=== PATIENT | male | born 1970 | race Caucasian/White ===

== ENCOUNTER 2016-02-15 13:01 | Outpatient (RCR) | payer BC | END 2016-05-15 | disposition still patient (30) | LOC: MKS.ESL.PT | DX: I89.0 Lymphedema, not elsewhere classified (principal); Z85.47 Personal history of malignant neoplasm of testis; Z92.3 Personal history of irradiation ==

== ENCOUNTER → 2016-03-20 | Outpatient (REF) | LOC: ZLAB.WCH 10:43 | DX: Z01.89 Encounter for other specified special examinations (principal) ==

== ENCOUNTER → 2016-06-16 | Outpatient (REF) | LOC: ZLAB.WCH 20:08 | DX: Z01.89 Encounter for other specified special examinations (principal) ==

== ENCOUNTER 2016-12-07 20:15 | Inpatient (IN) | payer OTHER, MEDICAID ==
[~2016-12-07] VITALS: Ht 175.3 cm; Wt 177.0 kg
[2016-12-07] VITALS (96 sets, daily range): BP systolic 129; BP diastolic 78; PULSE 87; TEMP 97.3; O2SAT 76–100
[2016-12-07] MEDS ORDERED: PRAVACHOL 40MG40 MG PO (22:21)
[2016-12-07] MEDS ORDERED: ZYRTEC 10MG10 MG PO (22:23)
[2016-12-07] MEDS ORDERED: PRILOSEC 20MG20 MG PO (22:25)
[2016-12-07] MEDS ORDERED: LASIX 40MG TABL40 MG PO (22:28)
[2016-12-07] MEDS ORDERED: MIRAPEX 1MG PO (22:31)
[2016-12-07] MEDS ORDERED: COREG 25MG25 MG/TAB PO (22:32)
[2016-12-07] MEDS ORDERED: GLUCOPHAGE1000 MG PO (22:34)
[2016-12-07] MEDS ORDERED: NOVOLIN 70/30 710 ML SQ (22:36)
[2016-12-08] VITALS (1301 sets, daily range): BP systolic 112–141; BP diastolic 63–88; PULSE 72–90; TEMP 97–99.3; O2SAT 43–100
[2016-12-08 01:48] LABS: BASO # 0.1 (0.0-0.2); BASO % 0.7 % (0.0-2.0); EOS # 0.2 (0.0-0.7); EOS % 1.1 % (0-4.0); GRAN # 10.2 (1.4-6.5); GRAN % 67.9 % (42.2-75.2); HEMATOCRIT 48.4 % (42.0-52.0); HEMOGLOBIN 14.1 g/dl (13.5-18.0); LYMPH # 3.1 (1.2-3.4); LYMPH % 20.4 % (20.0-51.0); MEAN CELL VOLUME 84 fl (80.0-100.0); MEAN CORPUSCULAR HEMOGLOBIN 24 pg (27.0-31.0); MEAN CORPUSCULAR HGB CONC 29 g/dl (33.0-37.0); MEAN PLATELET VOLUME 11.5 fl (7.4-10.4); MONO # 1.3 (0.1-0.6); PLATELET COUNT 256 K/mm3 (130-400); RED BLOOD COUNT 5.77 M/mm3 (4.20-5.60)
[2016-12-08 02:03] LABS: ADJUSTED CALCIUM 8.6 mg/dL (8.4-10.2); ALBUMIN 3.7 gm/dL (3.5-5.0); BILIRUBIN,TOTAL 0.6 mg/dL (0.0-1.0); C-REACTIVE PROTEIN 1.6 mg/dL (0.0-0.9); CALCIUM 8.4 mg/dL (8.4-10.2); CREATININE, serum 0.88 mg/dL (0.66-1.25); MAGNESIUM 1.8 mg/dL (1.6-2.3); POTASSIUM 4.7 mmol/L (3.4-5.0); TOTAL PROTEIN 7.5 gm/dL (6.4-8.2)
[2016-12-08 02:12] LABS: TROPONIN-I 0.014 ng/mL (0.000-0.034)
[2016-12-08 05:20] LABS: ARTERIAL BLD GAS O2 SATURATION 90.5 % (92-100); ARTERIAL BLD GAS TCO2 CT 38.8; ARTERIAL BLOOD GAS HCO3 36.4 meq/L (22-26); ARTERIAL BLOOD GAS PO2 64.1 mmHg (80-100); ARTERIAL BLOOD GAS PO2T 64.1 (80-100)
[2016-12-08 05:22] LABS: ALLEN TEST YES; ALLENS TEST RESULT PASS; ATS? YES
[2016-12-08 06:47] LABS: BASO # 0.1 (0.0-0.2); BASO % 0.6 % (0.0-2.0); EOS # 0.1 (0.0-0.7); GRAN # 10.1 (1.4-6.5); GRAN % 72.4 % (42.2-75.2); HEMATOCRIT 46.9 % (42.0-52.0); HEMOGLOBIN 13.2 g/dl (13.5-18.0); LYMPH # 2.3 (1.2-3.4); LYMPH % 16.8 % (20.0-51.0); MEAN CELL VOLUME 86 fl (80.0-100.0); MEAN CORPUSCULAR HEMOGLOBIN 24 pg (27.0-31.0); MEAN CORPUSCULAR HGB CONC 28 g/dl (33.0-37.0); MEAN PLATELET VOLUME 11.7 fl (7.4-10.4); MONO # 1.2 (0.1-0.6); MONO % 8.6 % (1.7-9.3); PLATELET COUNT 234 K/mm3 (130-400); RED BLOOD COUNT 5.47 M/mm3 (4.20-5.60); WHITE BLOOD COUNT 13.9 K/mm3 (4.8-10.8)
[2016-12-08 07:03] LABS: CALCIUM 8.2 mg/dL (8.4-10.2); CREATININE, serum 0.98 mg/dL (0.66-1.25); POTASSIUM 4.1 mmol/L (3.4-5.0)
[2016-12-08 08:33] LABS: ARTERIAL BLD GAS O2 SATURATION 93.7 % (92-100); ARTERIAL BLOOD GAS BASE EXCESS 7.9 (-2-2); ARTERIAL BLOOD GAS HCO3 38.3 meq/L (22-26); ARTERIAL BLOOD GAS PHT 7.27 C (7.35-7.45); ARTERIAL BLOOD GAS PO2 75.9 mmHg (80-100); ARTERIAL BLOOD GAS PO2T 75.9 (80-100); ARTERIAL BLOOD GAS pH 7.27 (7.35-7.45)
[2016-12-08 08:34] LABS: ATS? YES
[2016-12-08 11:14] LABS: ARTERIAL BLD GAS O2 SATURATION 96.1 % (92-100); ARTERIAL BLD GAS TCO2 CT 40.3; ARTERIAL BLOOD GAS BASE EXCESS 10.4 (-2-2); ARTERIAL BLOOD GAS HCO3 38.2 meq/L (22-26); ARTERIAL BLOOD GAS PO2 81.5 mmHg (80-100); ARTERIAL BLOOD GAS pH 7.38 (7.35-7.45); OXYHEMOGLOBIN 94.2 %
[2016-12-08 11:16] LABS: ABG VENTILATOR TIDAL VOLUME 450 mL; ATS? NO
[2016-12-08 16:00] LABS: MUCOUS Present /lpf; PH 5 (5-8); SQUAMOUS EPITHELIAL None Seen /hpf; URINE APPEARANCE Hazy; URINE BACTERIA None Seen /hpf; URINE BILIRUBIN Negative (NEGATIVE); URINE BLOOD 3+ (NEGATIVE); URINE COLOR Yellow; URINE GLUCOSE Negative (NEGATIVE); URINE KETONE Negative (NEGATIVE); URINE LEUKOCYTE ESTERASE Negative (NEGATIVE); URINE PROTEIN(semi-quant) 1+ (NEGATIVE); URINE RBC >50 /hpf; URINE UROBILINOGEN Negative (NEGATIVE)
[2016-12-08 16:12] LABS: COLLECTION METHOD CATHETER
[2016-12-08 17:36] LABS: ARTERIAL BLD GAS O2 SATURATION 96.8 % (92-100); ARTERIAL BLD GAS TCO2 CT 37.5; ARTERIAL BLOOD GAS BASE EXCESS 10.4 (-2-2); ARTERIAL BLOOD GAS HCO3 35.9 meq/L (22-26); ARTERIAL BLOOD GAS PO2 86.8 mmHg (80-100); ARTERIAL BLOOD GAS pH 7.46 (7.35-7.45); OXYHEMOGLOBIN 95.3 %
[2016-12-08 17:37] LABS: ABG VENTILATOR TIDAL VOLUME 450 mL
[2016-12-08 18:07] LABS: ADD PATHOLOGY DIFF REVIEW NO
[2016-12-08 18:10] LABS: HEMATOCRIT 41.9 % (42.0-52.0); HEMOGLOBIN 12.3 g/dl (13.5-18.0); MEAN CELL VOLUME 84 fl (80.0-100.0); MEAN CORPUSCULAR HGB CONC 29 g/dl (33.0-37.0); MEAN PLATELET VOLUME 11.2 fl (7.4-10.4); PLATELET COUNT 193 K/mm3 (130-400); WHITE BLOOD COUNT 11.3 K/mm3 (4.8-10.8)
[2016-12-08 18:11] LABS: MEAN CORPUSCULAR HEMOGLOBIN 25 pg (27.0-31.0)
[2016-12-08 18:28] LABS: CALCIUM 8.1 mg/dL (8.4-10.2); CREATININE, serum 0.84 mg/dL (0.66-1.25); MAGNESIUM 1.6 mg/dL (1.6-2.3); PHOSPHOROUS 3.8 mg/dL (2.5-4.5); POTASSIUM 3.6 mmol/L (3.4-5.0)
[2016-12-08 22:56] LABS: BAND 6 % (0-10); BASOPHIL 1 % (0-2); EOSINOPHIL 1 % (0-4); LYMPHOCYTE 19 % (20.0-51.0); METAMYELOCYTE 1 % (0-0); NEUTROPHILS 66 % (42.0-75.2); TOTAL CELLS COUNTED 100
[2016-12-08 22:57] LABS: PLATELET ESTIMATE NORMAL (NORMAL)
[2016-12-08 23:00] LABS: ANISOCYTOSIS 2+; HYPOCHROMIA 1+; MICROCYTOSIS 1+; OVALOCYTES 1+; POLYCHROMASIA 1+; TOXIC GRANULATION PRESENT
[2016-12-09] VITALS (1413 sets, daily range): BP systolic 115–148; BP diastolic 64–87; PULSE 76–93; TEMP 97.6–98.4; O2SAT 77–100
[2016-12-09 04:44] LABS: ARTERIAL BLD GAS O2 SATURATION 92.5 % (92-100); ARTERIAL BLD GAS TCO2 CT 42.1; ARTERIAL BLOOD GAS BASE EXCESS 12.1 (-2-2); ARTERIAL BLOOD GAS PHT 7.39 C (7.35-7.45); ARTERIAL BLOOD GAS PO2 66.7 mmHg (80-100); ARTERIAL BLOOD GAS PO2T 66.7 (80-100); ARTERIAL BLOOD GAS pH 7.39 (7.35-7.45); OXYHEMOGLOBIN 91.1 %
[2016-12-09 04:46] LABS: ALLEN TEST NO; ATS? NO
[2016-12-09 05:55] LABS: BASO # 0.1 (0.0-0.2); BASO % 0.5 % (0.0-2.0); EOS # 0.1 (0.0-0.7); EOS % 0.7 % (0-4.0); GRAN # 10.3 (1.4-6.5); GRAN % 76.3 % (42.2-75.2); HEMOGLOBIN 13.1 g/dl (13.5-18.0); LYMPH # 1.9 (1.2-3.4); LYMPH % 14.1 % (20.0-51.0); MEAN CELL VOLUME 85 fl (80.0-100.0); MEAN CORPUSCULAR HEMOGLOBIN 25 pg (27.0-31.0); MEAN CORPUSCULAR HGB CONC 30 g/dl (33.0-37.0); MEAN PLATELET VOLUME 12.3 fl (7.4-10.4); MONO # 1.1 (0.1-0.6); MONO % 7.8 % (1.7-9.3); PLATELET COUNT 201 K/mm3 (130-400); RED BLOOD COUNT 5.21 M/mm3 (4.20-5.60); WHITE BLOOD COUNT 13.5 K/mm3 (4.8-10.8)
[2016-12-09 06:15] LABS: CALCIUM 7.6 mg/dL (8.4-10.2); CREATININE, serum 0.83 mg/dL (0.66-1.25); MAGNESIUM 1.6 mg/dL (1.6-2.3); PHOSPHOROUS 4.7 mg/dL (2.5-4.5); POTASSIUM 3.9 mmol/L (3.4-5.0)
[2016-12-09 21:02] LABS: MAGNESIUM 1.9 mg/dL (1.6-2.3); PHOSPHOROUS 5.5 mg/dL (2.5-4.5); POTASSIUM 3.6 mmol/L (3.4-5.0)
[2016-12-10] VITALS (1440 sets, daily range): BP systolic 112–144; BP diastolic 59–80; PULSE 80–87; TEMP 97.1–100.9; O2SAT 63–98
[2016-12-10 04:58] LABS: ARTERIAL BLD GAS O2 SATURATION 94.2 % (92-100); ARTERIAL BLD GAS TCO2 CT 41.9; ARTERIAL BLOOD GAS BASE EXCESS 11.4 (-2-2); ARTERIAL BLOOD GAS HCO3 39.7 meq/L (22-26); ARTERIAL BLOOD GAS PHT 7.36 C (7.35-7.45); ARTERIAL BLOOD GAS PO2 75.9 mmHg (80-100); ARTERIAL BLOOD GAS PO2T 75.4 (80-100); ARTERIAL BLOOD GAS pH 7.36 (7.35-7.45); OXYHEMOGLOBIN 92.4 %
[2016-12-10 05:00] LABS: ABG VENTILATOR TIDAL VOLUME 450 mL; ALLEN TEST NO; ATS? NO
[2016-12-10 05:45] LABS: BASO % 0.4 % (0.0-2.0); EOS # 0.1 (0.0-0.7); EOS % 1.2 % (0-4.0); GRAN # 7.9 (1.4-6.5); GRAN % 74.1 % (42.2-75.2); HEMATOCRIT 42.8 % (42.0-52.0); HEMOGLOBIN 12.4 g/dl (13.5-18.0); LYMPH # 1.6 (1.2-3.4); LYMPH % 15.1 % (20.0-51.0); MEAN CELL VOLUME 84 fl (80.0-100.0); MEAN CORPUSCULAR HEMOGLOBIN 25 pg (27.0-31.0); MEAN CORPUSCULAR HGB CONC 29 g/dl (33.0-37.0); MEAN PLATELET VOLUME 10.7 fl (7.4-10.4); MONO # 0.9 (0.1-0.6); MONO % 8.7 % (1.7-9.3); PLATELET COUNT 178 K/mm3 (130-400); RED BLOOD COUNT 5.07 M/mm3 (4.20-5.60); WHITE BLOOD COUNT 10.6 K/mm3 (4.8-10.8)
[2016-12-10 06:07] LABS: CALCIUM 7.7 mg/dL (8.4-10.2); CREATININE, serum 0.91 mg/dL (0.66-1.25); PHOSPHOROUS 4.7 mg/dL (2.5-4.5); POTASSIUM 3.7 mmol/L (3.4-5.0)
[2016-12-11] VITALS (1426 sets, daily range): BP systolic 117–142; BP diastolic 61–77; PULSE 67–87; TEMP 96.6–101; O2SAT 78–100
[2016-12-11 05:31] LABS: ARTERIAL BLD GAS O2 SATURATION 93.6 % (92-100); ARTERIAL BLD GAS TCO2 CT 49.1; ARTERIAL BLOOD GAS BASE EXCESS 17.2 (-2-2); ARTERIAL BLOOD GAS HCO3 46.6 meq/L (22-26); ARTERIAL BLOOD GAS PHT 7.35 C (7.35-7.45); ARTERIAL BLOOD GAS PO2 71.5 mmHg (80-100); ARTERIAL BLOOD GAS PO2T 80.7 (80-100); ARTERIAL BLOOD GAS pH 7.37 (7.35-7.45)
[2016-12-11 05:32] LABS: ALLEN TEST YES; ALLENS TEST RESULT PASS; ATS? YES
[2016-12-11 05:33] LABS: ABG VENTILATOR TIDAL VOLUME 450 mL
[2016-12-11 05:43] LABS: BASO % 0.3 % (0.0-2.0); EOS # 0.1 (0.0-0.7); EOS % 1.2 % (0-4.0); GRAN # 7.7 (1.4-6.5); GRAN % 78.1 % (42.2-75.2); HEMATOCRIT 41.9 % (42.0-52.0); LYMPH # 1.2 (1.2-3.4); LYMPH % 11.7 % (20.0-51.0); MEAN CELL VOLUME 86 fl (80.0-100.0); MEAN CORPUSCULAR HEMOGLOBIN 25 pg (27.0-31.0); MEAN CORPUSCULAR HGB CONC 29 g/dl (33.0-37.0); MEAN PLATELET VOLUME 11.4 fl (7.4-10.4); MONO # 0.8 (0.1-0.6); MONO % 8.1 % (1.7-9.3); PLATELET COUNT 158 K/mm3 (130-400); WHITE BLOOD COUNT 9.9 K/mm3 (4.8-10.8)
[2016-12-11 05:55] LABS: CALCIUM 7.3 mg/dL (8.4-10.2); CREATININE, serum 0.94 mg/dL (0.66-1.25); MAGNESIUM 2.1 mg/dL (1.6-2.3); POTASSIUM 3.7 mmol/L (3.4-5.0)
[2016-12-11 05:55] LABS: COLLECTION METHOD CATHETER
[2016-12-11 06:04] LABS: MUCOUS Present /lpf; PH 5 (5-8); SQUAMOUS EPITHELIAL 0-2 /hpf; URINE APPEARANCE Hazy; URINE BACTERIA Rare /hpf; URINE BILIRUBIN Negative (NEGATIVE); URINE BLOOD Negative (NEGATIVE); URINE COLOR Yellow; URINE GLUCOSE Negative (NEGATIVE); URINE KETONE Trace (NEGATIVE); URINE LEUKOCYTE ESTERASE Negative (NEGATIVE); URINE PROTEIN(semi-quant) 1+ (NEGATIVE); URINE RBC 0-2 /hpf; URINE UROBILINOGEN Negative (NEGATIVE)
[2016-12-11 15:48] LABS: URINE PROTEIN:CREAT RATIO 0.19 (0.00-0.14)
[2016-12-11 18:10] LABS: ARTERIAL BLD GAS O2 SATURATION 95.4 % (92-100); ARTERIAL BLD GAS TCO2 CT 45.4; ARTERIAL BLOOD GAS BASE EXCESS 14.6 (-2-2); ARTERIAL BLOOD GAS HCO3 43.1 meq/L (22-26); ARTERIAL BLOOD GAS PHT 7.37 C (7.35-7.45); ARTERIAL BLOOD GAS PO2 82.3 mmHg (80-100); ARTERIAL BLOOD GAS PO2T 85.6 (80-100); ARTERIAL BLOOD GAS pH 7.38 (7.35-7.45); OXYHEMOGLOBIN 93.7 %
[2016-12-11 18:11] LABS: ABG VENTILATOR TIDAL VOLUME 450 mL; ALLEN TEST YES; ALLENS TEST RESULT PASS; ATS? YES
[2016-12-11 21:25] LABS: CALCIUM 7.3 mg/dL (8.4-10.2); CREATININE, serum 0.66 mg/dL (0.66-1.25); MAGNESIUM 2.3 mg/dL (1.6-2.3); PHOSPHOROUS 2.6 mg/dL (2.5-4.5); POTASSIUM 4.1 mmol/L (3.4-5.0)
[2016-12-12] VITALS (1427 sets, daily range): BP systolic 128–152; BP diastolic 67–84; PULSE 70–80; TEMP 98.4–100.4; O2SAT 86–100
[2016-12-12 05:13] LABS: ARTERIAL BLD GAS O2 SATURATION 94.2 % (92-100); ARTERIAL BLD GAS TCO2 CT 44.5; ARTERIAL BLOOD GAS BASE EXCESS 13.5 (-2-2); ARTERIAL BLOOD GAS HCO3 42.2 meq/L (22-26); ARTERIAL BLOOD GAS PHT 7.36 C (7.35-7.45); ARTERIAL BLOOD GAS PO2 73.9 mmHg (80-100); ARTERIAL BLOOD GAS PO2T 74.9 (80-100); ARTERIAL BLOOD GAS pH 7.37 (7.35-7.45); OXYHEMOGLOBIN 92.6 %
[2016-12-12 05:14] LABS: ABG VENTILATOR TIDAL VOLUME 450 mL; ALLEN TEST YES; ALLENS TEST RESULT PASS; ATS? YES
[2016-12-12 06:34] LABS: CALCIUM 7.9 mg/dL (8.4-10.2); CREATININE, serum 0.74 mg/dL (0.66-1.25)
[2016-12-12 09:42] LABS: CREATININE, serum 0.62 mg/dL (0.66-1.25)
[2016-12-13] VITALS (1420 sets, daily range): BP systolic 126–141; BP diastolic 68–83; PULSE 74–84; TEMP 98.9–99.9; O2SAT 89–99
[2016-12-13 05:09] LABS: ARTERIAL BLD GAS TCO2 CT 45.7; ARTERIAL BLOOD GAS BASE EXCESS 14.4 (-2-2); ARTERIAL BLOOD GAS HCO3 43.3 meq/L (22-26); ARTERIAL BLOOD GAS PO2 83.3 mmHg (80-100); ARTERIAL BLOOD GAS pH 7.36 (7.35-7.45); OXYHEMOGLOBIN 94.8 %
[2016-12-13 05:11] LABS: ALLEN TEST YES; ALLENS TEST RESULT PASS; ATS? YES
[2016-12-13 05:58] LABS: BASO # 0.1 (0.0-0.2); BASO % 0.7 % (0.0-2.0); EOS # 0.4 (0.0-0.7); EOS % 3.7 % (0-4.0); GRAN # 6.9 (1.4-6.5); GRAN % 73.2 % (42.2-75.2); HEMATOCRIT 41.9 % (42.0-52.0); LYMPH # 1.3 (1.2-3.4); LYMPH % 14.2 % (20.0-51.0); MEAN CELL VOLUME 86 fl (80.0-100.0); MEAN CORPUSCULAR HEMOGLOBIN 24 pg (27.0-31.0); MEAN CORPUSCULAR HGB CONC 28 g/dl (33.0-37.0); MEAN PLATELET VOLUME 11.4 fl (7.4-10.4); MONO # 0.8 (0.1-0.6); MONO % 7.9 % (1.7-9.3); PLATELET COUNT 181 K/mm3 (130-400); WHITE BLOOD COUNT 9.5 K/mm3 (4.8-10.8)
[2016-12-13 05:59] LABS: HEMOGLOBIN 11.8 g/dl (13.5-18.0)
[2016-12-13 06:24] LABS: CALCIUM 8.2 mg/dL (8.4-10.2); CREATININE, serum 0.84 mg/dL (0.66-1.25); MAGNESIUM 2.6 mg/dL (1.6-2.3); PHOSPHOROUS 3.1 mg/dL (2.5-4.5); POTASSIUM 4.1 mmol/L (3.4-5.0)
[2016-12-13 06:31] LABS: VANCOMYCIN TROUGH 22.8 ug/mL (7.00-20.00)
[2016-12-14] VITALS (1389 sets, daily range): BP systolic 119–156; BP diastolic 60–81; PULSE 71–91; TEMP 99.2–100.4; O2SAT 92–98
[2016-12-14 05:04] LABS: ALLEN TEST YES; ALLENS TEST RESULT PASS; ARTERIAL BLD GAS O2 SATURATION 95.8 % (92-100); ARTERIAL BLD GAS TCO2 CT 41.2; ARTERIAL BLOOD GAS BASE EXCESS 10.2 (-2-2); ARTERIAL BLOOD GAS HCO3 38.9 meq/L (22-26); ARTERIAL BLOOD GAS PO2 86.6 mmHg (80-100); ARTERIAL BLOOD GAS pH 7.34 (7.35-7.45); ATS? YES; OXYHEMOGLOBIN 94.2 %
[2016-12-14 06:24] LABS: BASO # 0.1 (0.0-0.2); BASO % 0.6 % (0.0-2.0); EOS # 0.3 (0.0-0.7); EOS % 2.6 % (0-4.0); GRAN # 7.4 (1.4-6.5); GRAN % 74.7 % (42.2-75.2); HEMATOCRIT 41.3 % (42.0-52.0); LYMPH # 1.2 (1.2-3.4); LYMPH % 12.3 % (20.0-51.0); MEAN CELL VOLUME 86 fl (80.0-100.0); MEAN CORPUSCULAR HEMOGLOBIN 24 pg (27.0-31.0); MEAN CORPUSCULAR HGB CONC 28 g/dl (33.0-37.0); MEAN PLATELET VOLUME 11.1 fl (7.4-10.4); MONO # 0.9 (0.1-0.6); MONO % 9.4 % (1.7-9.3); PLATELET COUNT 181 K/mm3 (130-400); RED BLOOD COUNT 4.82 M/mm3 (4.20-5.60); WHITE BLOOD COUNT 9.9 K/mm3 (4.8-10.8)
[2016-12-14 06:33] LABS: HEMOGLOBIN 11.7 g/dl (13.5-18.0)
[2016-12-14 06:44] LABS: CALCIUM 8.3 mg/dL (8.4-10.2); CREATININE, serum 0.87 mg/dL (0.66-1.25); MAGNESIUM 2.6 mg/dL (1.6-2.3); PHOSPHOROUS 3.6 mg/dL (2.5-4.5); POTASSIUM 3.7 mmol/L (3.4-5.0)
[2016-12-14 17:54] LABS: ARTERIAL BLD GAS O2 SATURATION 96.6 % (92-100); ARTERIAL BLD GAS TCO2 CT 43.6; ARTERIAL BLOOD GAS BASE EXCESS 12.8 (-2-2); ARTERIAL BLOOD GAS HCO3 41.3 meq/L (22-26); ARTERIAL BLOOD GAS PO2 85.2 mmHg (80-100); ARTERIAL BLOOD GAS pH 7.36 (7.35-7.45); OXYHEMOGLOBIN 95.4 %
[2016-12-14 18:01] LABS: ALLEN TEST YES; ALLENS TEST RESULT PASS; ATS? YES
[2016-12-15] VITALS (1412 sets, daily range): BP systolic 133–169; BP diastolic 77–90; PULSE 80–90; TEMP 98.6–100.8; O2SAT 86–100
[2016-12-15 05:12] LABS: ALLEN TEST YES; ALLENS TEST RESULT PASS; ARTERIAL BLD GAS O2 SATURATION 97.1 % (92-100); ARTERIAL BLD GAS TCO2 CT 38.4; ARTERIAL BLOOD GAS BASE EXCESS 10.5 (-2-2); ARTERIAL BLOOD GAS HCO3 36.7 meq/L (22-26); ARTERIAL BLOOD GAS PO2 90.4 mmHg (80-100); ARTERIAL BLOOD GAS pH 7.43 (7.35-7.45); ATS? YES
[2016-12-15 05:57] LABS: BASO # 0.1 (0.0-0.2); BASO % 0.7 % (0.0-2.0); EOS # 0.4 (0.0-0.7); EOS % 3.3 % (0-4.0); GRAN # 8.1 (1.4-6.5); GRAN % 74.2 % (42.2-75.2); HEMATOCRIT 39.4 % (42.0-52.0); LYMPH # 1.4 (1.2-3.4); LYMPH % 12.4 % (20.0-51.0); MEAN CELL VOLUME 85 fl (80.0-100.0); MEAN CORPUSCULAR HEMOGLOBIN 25 pg (27.0-31.0); MEAN CORPUSCULAR HGB CONC 30 g/dl (33.0-37.0); MEAN PLATELET VOLUME 11.9 fl (7.4-10.4); MONO % 8.9 % (1.7-9.3); PLATELET COUNT 206 K/mm3 (130-400); RED BLOOD COUNT 4.63 M/mm3 (4.20-5.60)
[2016-12-15 06:00] LABS: HEMOGLOBIN 11.7 g/dl (13.5-18.0)
[2016-12-15 06:14] LABS: CALCIUM 8.2 mg/dL (8.4-10.2); CREATININE, serum 0.71 mg/dL (0.66-1.25); PHOSPHOROUS 3.3 mg/dL (2.5-4.5); POTASSIUM 3.7 mmol/L (3.4-5.0)
[2016-12-15 12:38] LABS: ADJUSTED CALCIUM 9.3 mg/dL (8.4-10.2); BILIRUBIN,TOTAL 0.5 mg/dL (0.0-1.0); CALCIUM 8.5 mg/dL (8.4-10.2); CREATININE, serum 0.8 mg/dL (0.66-1.25); MAGNESIUM 2.3 mg/dL (1.6-2.3); PHOSPHOROUS 3.3 mg/dL (2.5-4.5); POTASSIUM 3.5 mmol/L (3.4-5.0)
[2016-12-15 12:47] LABS: PRE ALBUMIN 11.4 mg/dL (17.6-36.0)
[2016-12-16] VITALS (1131 sets, daily range): BP systolic 132–1137; BP diastolic 56–101; PULSE 76–94; TEMP 97.2–100.9; O2SAT 87–100
[2016-12-16 10:14] LABS: BASO # 0.1 (0.0-0.2); BASO % 0.7 % (0.0-2.0); EOS # 0.2 (0.0-0.7); EOS % 2.3 % (0-4.0); GRAN # 7.4 (1.4-6.5); GRAN % 72.1 % (42.2-75.2); HEMATOCRIT 38.8 % (42.0-52.0); HEMOGLOBIN 10.9 g/dl (13.5-18.0); LYMPH # 1.5 (1.2-3.4); LYMPH % 14.4 % (20.0-51.0); MEAN CELL VOLUME 84 fl (80.0-100.0); MEAN CORPUSCULAR HEMOGLOBIN 24 pg (27.0-31.0); MEAN CORPUSCULAR HGB CONC 28 g/dl (33.0-37.0); PLATELET COUNT 217 K/mm3 (130-400); PROTHROMBIN TIME 22.4 SECONDS (9.7-12.8); RED BLOOD COUNT 4.61 M/mm3 (4.20-5.60); WHITE BLOOD COUNT 10.2 K/mm3 (4.8-10.8)
[2016-12-16 10:20] LABS: CALCIUM 8.8 mg/dL (8.4-10.2); CREATININE, serum 0.72 mg/dL (0.66-1.25); MAGNESIUM 2.4 mg/dL (1.6-2.3); PHOSPHOROUS 3.1 mg/dL (2.5-4.5); POTASSIUM 3.3 mmol/L (3.4-5.0)
[2016-12-17] VITALS (1231 sets, daily range): BP systolic 122–157; BP diastolic 63–83; PULSE 77–85; TEMP 99–100.8; O2SAT 86–99
[2016-12-17 05:46] LABS: ARTERIAL BLD GAS O2 SATURATION 97.2 % (92-100); ARTERIAL BLD GAS TCO2 CT 41.5; ARTERIAL BLOOD GAS BASE EXCESS 15.7 (-2-2); ARTERIAL BLOOD GAS PHT 7.53 C (7.35-7.45); ARTERIAL BLOOD GAS PO2 102.4 mmHg (80-100); ARTERIAL BLOOD GAS PO2T 102.4 (80-100); ARTERIAL BLOOD GAS pH 7.53 (7.35-7.45); OXYHEMOGLOBIN 95.6 %
[2016-12-17 05:47] LABS: ABG VENTILATOR TIDAL VOLUME 450 mL; ALLEN TEST YES; ALLENS TEST RESULT PASS; ATS? YES
[2016-12-17 05:50] LABS: BASO # 0.1 (0.0-0.2); BASO % 0.8 % (0.0-2.0); EOS # 0.2 (0.0-0.7); EOS % 2.7 % (0-4.0); GRAN # 6.1 (1.4-6.5); GRAN % 69.2 % (42.2-75.2); HEMATOCRIT 37.2 % (42.0-52.0); LYMPH # 1.5 (1.2-3.4); LYMPH % 16.7 % (20.0-51.0); MEAN CELL VOLUME 85 fl (80.0-100.0); MEAN CORPUSCULAR HEMOGLOBIN 24 pg (27.0-31.0); MEAN CORPUSCULAR HGB CONC 29 g/dl (33.0-37.0); MEAN PLATELET VOLUME 10.6 fl (7.4-10.4); MONO # 0.9 (0.1-0.6); PLATELET COUNT 220 K/mm3 (130-400); WHITE BLOOD COUNT 8.8 K/mm3 (4.8-10.8)
[2016-12-17 06:00] LABS: HEMOGLOBIN 10.6 g/dl (13.5-18.0)
[2016-12-17 06:16] LABS: CALCIUM 8.6 mg/dL (8.4-10.2); CREATININE, serum 0.77 mg/dL (0.66-1.25); MAGNESIUM 2.3 mg/dL (1.6-2.3); PHOSPHOROUS 3.2 mg/dL (2.5-4.5); POTASSIUM 3.6 mmol/L (3.4-5.0)
[2016-12-17 10:20] LABS: INR 1.3 (0.8-3.0); PROTHROMBIN TIME 14.6 SECONDS (9.7-12.8)
[2016-12-17 17:30] LABS: CALCIUM 8.7 mg/dL (8.4-10.2); CREATININE, serum 0.8 mg/dL (0.66-1.25); POTASSIUM 3.3 mmol/L (3.4-5.0)
[2016-12-18] VITALS (1147 sets, daily range): BP systolic 122–155; BP diastolic 69–96; PULSE 77–90; TEMP 97–100; O2SAT 86–100
[2016-12-18 05:58] LABS: CALCIUM 8.9 mg/dL (8.4-10.2); CREATININE, serum 0.75 mg/dL (0.66-1.25); MAGNESIUM 2.4 mg/dL (1.6-2.3); PHOSPHOROUS 3.9 mg/dL (2.5-4.5); POTASSIUM 3.7 mmol/L (3.4-5.0)
[2016-12-18 07:06] LABS: BASO # 0.1 (0.0-0.2); BASO % 0.8 % (0.0-2.0); EOS # 0.5 (0.0-0.7); EOS % 5.5 % (0-4.0); GRAN # 5.3 (1.4-6.5); GRAN % 61.9 % (42.2-75.2); HEMATOCRIT 38.6 % (42.0-52.0); LYMPH # 1.8 (1.2-3.4); MEAN CELL VOLUME 86 fl (80.0-100.0); MEAN CORPUSCULAR HEMOGLOBIN 24 pg (27.0-31.0); MEAN CORPUSCULAR HGB CONC 28 g/dl (33.0-37.0); MEAN PLATELET VOLUME 11.9 fl (7.4-10.4); MONO # 0.9 (0.1-0.6); MONO % 10.2 % (1.7-9.3); PLATELET COUNT 191 K/mm3 (130-400); RED BLOOD COUNT 4.51 M/mm3 (4.20-5.60); WHITE BLOOD COUNT 8.5 K/mm3 (4.8-10.8)
[2016-12-18 07:12] LABS: HEMOGLOBIN 10.7 g/dl (13.5-18.0)
[2016-12-19] VITALS (1319 sets, daily range): BP systolic 114–144; BP diastolic 63–93; PULSE 75–96; TEMP 97.8–103.3; O2SAT 88–100
[2016-12-19 06:34] LABS: BASO # 0.1 (0.0-0.2); BASO % 1.1 % (0.0-2.0); EOS # 0.4 (0.0-0.7); EOS % 4.8 % (0-4.0); GRAN % 61.5 % (42.2-75.2); HEMATOCRIT 38.3 % (42.0-52.0); LYMPH % 23.9 % (20.0-51.0); MEAN CELL VOLUME 85 fl (80.0-100.0); MEAN CORPUSCULAR HEMOGLOBIN 24 pg (27.0-31.0); MEAN CORPUSCULAR HGB CONC 28 g/dl (33.0-37.0); MEAN PLATELET VOLUME 10.9 fl (7.4-10.4); MONO # 0.7 (0.1-0.6); MONO % 8.2 % (1.7-9.3); PLATELET COUNT 238 K/mm3 (130-400); RED BLOOD COUNT 4.49 M/mm3 (4.20-5.60); WHITE BLOOD COUNT 8.2 K/mm3 (4.8-10.8)
[2016-12-19 06:35] LABS: HEMOGLOBIN 10.6 g/dl (13.5-18.0)
[2016-12-19 06:49] LABS: CALCIUM 9.3 mg/dL (8.4-10.2); CREATININE, serum 0.89 mg/dL (0.66-1.25); MAGNESIUM 2.5 mg/dL (1.6-2.3); POTASSIUM 3.9 mmol/L (3.4-5.0)
[2016-12-19 11:14] LABS: ARTERIAL BLD GAS O2 SATURATION 93.9 % (92-100); ARTERIAL BLD GAS TCO2 CT 39.6; ARTERIAL BLOOD GAS BASE EXCESS 10.1 (-2-2); ARTERIAL BLOOD GAS HCO3 37.6 meq/L (22-26); ARTERIAL BLOOD GAS PO2 77.5 mmHg (80-100); ARTERIAL BLOOD GAS pH 7.37 (7.35-7.45); OXYHEMOGLOBIN 92.9 %
[2016-12-19 11:18] LABS: ATS? YES
[2016-12-19 16:47] LABS: INFLUENZA A NEGATIVE; INFLUENZA B NEGATIVE
[2016-12-20] VITALS (1283 sets, daily range): BP systolic 123–156; BP diastolic 67–89; PULSE 82–92; TEMP 98.9–102.8; O2SAT 87–100
[2016-12-20 08:41] LABS: ADD PATHOLOGY DIFF REVIEW NO
[2016-12-20 08:47] LABS: HEMATOCRIT 37.2 % (42.0-52.0); MEAN CELL VOLUME 84 fl (80.0-100.0); MEAN CORPUSCULAR HEMOGLOBIN 24 pg (27.0-31.0); MEAN CORPUSCULAR HGB CONC 29 g/dl (33.0-37.0); MEAN PLATELET VOLUME 10.6 fl (7.4-10.4); PLATELET COUNT 245 K/mm3 (130-400); RED BLOOD COUNT 4.41 M/mm3 (4.20-5.60); WHITE BLOOD COUNT 9.7 K/mm3 (4.8-10.8)
[2016-12-20 08:50] LABS: HEMOGLOBIN 10.6 g/dl (13.5-18.0)
[2016-12-20 08:58] LABS: ADJUSTED CALCIUM 9.8 mg/dL (8.4-10.2); ALBUMIN 3.4 gm/dL (3.5-5.0); BILIRUBIN,TOTAL 0.4 mg/dL (0.0-1.0); C-REACTIVE PROTEIN 4.3 mg/dL (0.0-0.9); CALCIUM 9.3 mg/dL (8.4-10.2); CREATININE, serum 0.8 mg/dL (0.66-1.25); MAGNESIUM 2.4 mg/dL (1.6-2.3); PHOSPHOROUS 4.4 mg/dL (2.5-4.5); POTASSIUM 4.1 mmol/L (3.4-5.0); TOTAL PROTEIN 7.2 gm/dL (6.4-8.2)
[2016-12-20 09:06] LABS: BAND 12 % (0-10); EOSINOPHIL 1 % (0-4); LYMPHOCYTE 16 % (20.0-51.0); NEUTROPHILS 68 % (42.0-75.2); TOTAL CELLS COUNTED 100
[2016-12-20 09:07] LABS: PLATELET ESTIMATE NORMAL (NORMAL)
[2016-12-20 09:09] LABS: HYPOCHROMIA 2+
[2016-12-21] VITALS (1245 sets, daily range): BP systolic 112–177; BP diastolic 59–115; PULSE 71–90; TEMP 97.2–99.4; O2SAT 80–100
[2016-12-21 04:59] LABS: ARTERIAL BLD GAS O2 SATURATION 91.9 % (92-100); ARTERIAL BLD GAS TCO2 CT 41.2; ARTERIAL BLOOD GAS BASE EXCESS 11.4 (-2-2); ARTERIAL BLOOD GAS HCO3 39.1 meq/L (22-26); ARTERIAL BLOOD GAS PHT 7.36 C (7.35-7.45); ARTERIAL BLOOD GAS PO2 70.2 mmHg (80-100); ARTERIAL BLOOD GAS PO2T 72.1 (80-100); ARTERIAL BLOOD GAS pH 7.37 (7.35-7.45); OXYHEMOGLOBIN 90.9 %
[2016-12-21 05:00] LABS: ALLEN TEST YES; ATS? YES
[2016-12-21 05:01] LABS: ABG VENTILATOR TIDAL VOLUME 450 mL; ALLENS TEST RESULT PASS
[2016-12-21 05:30] LABS: BASO # 0.1 (0.0-0.2); BASO % 0.9 % (0.0-2.0); EOS # 0.7 (0.0-0.7); EOS % 7.8 % (0-4.0); GRAN # 5.5 (1.4-6.5); GRAN % 63.6 % (42.2-75.2); LYMPH # 1.8 (1.2-3.4); LYMPH % 20.6 % (20.0-51.0); MEAN CELL VOLUME 86 fl (80.0-100.0); MEAN CORPUSCULAR HGB CONC 28 g/dl (33.0-37.0); MEAN PLATELET VOLUME 11.3 fl (7.4-10.4); MONO # 0.6 (0.1-0.6); MONO % 6.6 % (1.7-9.3); PLATELET COUNT 237 K/mm3 (130-400); RED BLOOD COUNT 4.16 M/mm3 (4.20-5.60); WHITE BLOOD COUNT 8.7 K/mm3 (4.8-10.8)
[2016-12-21 05:33] LABS: HEMATOCRIT 35.6 % (42.0-52.0); MEAN CORPUSCULAR HEMOGLOBIN 24 pg (27.0-31.0)
[2016-12-21 05:38] LABS: CALCIUM 8.9 mg/dL (8.4-10.2); CREATININE, serum 0.8 mg/dL (0.66-1.25); MAGNESIUM 2.4 mg/dL (1.6-2.3); PHOSPHOROUS 4.5 mg/dL (2.5-4.5); POTASSIUM 3.7 mmol/L (3.4-5.0)
[2016-12-22] VITALS (1347 sets, daily range): BP systolic 138–177; BP diastolic 72–107; PULSE 72–95; TEMP 98.1–99.2; O2SAT 76–100
[2016-12-22 05:00] LABS: ARTERIAL BLD GAS TCO2 CT 44.2; ARTERIAL BLOOD GAS BASE EXCESS 14.1 (-2-2); ARTERIAL BLOOD GAS PHT 7.38 C (7.35-7.45); ARTERIAL BLOOD GAS PO2 70.2 mmHg (80-100); ARTERIAL BLOOD GAS PO2T 70.2 (80-100); ARTERIAL BLOOD GAS pH 7.38 (7.35-7.45); OXYHEMOGLOBIN 92.1 %
[2016-12-22 05:01] LABS: ABG VENTILATOR TIDAL VOLUME 450 mL; ALLEN TEST YES; ALLENS TEST RESULT PASS; ATS? YES
[2016-12-22 06:05] LABS: BASO # 0.1 (0.0-0.2); BASO % 0.9 % (0.0-2.0); EOS # 0.6 (0.0-0.7); EOS % 6.5 % (0-4.0); GRAN # 5.8 (1.4-6.5); GRAN % 69.2 % (42.2-75.2); LYMPH # 1.4 (1.2-3.4); MEAN CELL VOLUME 86 fl (80.0-100.0); MEAN CORPUSCULAR HGB CONC 27 g/dl (33.0-37.0); MEAN PLATELET VOLUME 10.8 fl (7.4-10.4); MONO # 0.5 (0.1-0.6); PLATELET COUNT 221 K/mm3 (130-400); WHITE BLOOD COUNT 8.5 K/mm3 (4.8-10.8)
[2016-12-22 06:06] LABS: HEMATOCRIT 36.8 % (42.0-52.0); HEMOGLOBIN 10.1 g/dl (13.5-18.0); MEAN CORPUSCULAR HEMOGLOBIN 23 pg (27.0-31.0)
[2016-12-22 06:15] LABS: CALCIUM 8.9 mg/dL (8.4-10.2); CREATININE, serum 0.73 mg/dL (0.66-1.25); MAGNESIUM 2.2 mg/dL (1.6-2.3); PHOSPHOROUS 3.8 mg/dL (2.5-4.5); POTASSIUM 3.7 mmol/L (3.4-5.0)
[2016-12-23] VITALS (1198 sets, daily range): BP systolic 143–170; BP diastolic 82–90; PULSE 78–89; TEMP 97.8–99.8; O2SAT 74–100
[2016-12-23 05:25] LABS: BASO # 0.1 (0.0-0.2); BASO % 0.9 % (0.0-2.0); EOS # 0.5 (0.0-0.7); EOS % 5.4 % (0-4.0); GRAN # 6.3 (1.4-6.5); GRAN % 67.9 % (42.2-75.2); HEMATOCRIT 38.6 % (42.0-52.0); LYMPH # 1.8 (1.2-3.4); LYMPH % 19.8 % (20.0-51.0); MEAN CELL VOLUME 86 fl (80.0-100.0); MEAN CORPUSCULAR HEMOGLOBIN 24 pg (27.0-31.0); MEAN CORPUSCULAR HGB CONC 28 g/dl (33.0-37.0); MEAN PLATELET VOLUME 11.1 fl (7.4-10.4); MONO # 0.5 (0.1-0.6); MONO % 5.6 % (1.7-9.3); PLATELET COUNT 228 K/mm3 (130-400); WHITE BLOOD COUNT 9.2 K/mm3 (4.8-10.8)
[2016-12-23 05:30] LABS: HEMOGLOBIN 10.7 g/dl (13.5-18.0)
[2016-12-23 05:36] LABS: CALCIUM 8.8 mg/dL (8.4-10.2); CREATININE, serum 0.78 mg/dL (0.66-1.25); MAGNESIUM 2.3 mg/dL (1.6-2.3); PHOSPHOROUS 4.1 mg/dL (2.5-4.5); POTASSIUM 4.1 mmol/L (3.4-5.0)
[2016-12-24] VITALS (1198 sets, daily range): BP systolic 117–170; BP diastolic 64–90; PULSE 67–98; TEMP 97.9–99.5; O2SAT 79–100
[2016-12-24 07:12] LABS: ARTERIAL BLD GAS O2 SATURATION 98.4 % (92-100); ARTERIAL BLD GAS TCO2 CT 36.8; ARTERIAL BLOOD GAS BASE EXCESS 6.9 (-2-2); ARTERIAL BLOOD GAS HCO3 34.8 meq/L (22-26); ARTERIAL BLOOD GAS PHT 7.33 C (7.35-7.45); ARTERIAL BLOOD GAS pH 7.33 (7.35-7.45); OXYHEMOGLOBIN 97.6 %
[2016-12-24 07:13] LABS: ARTERIAL BLOOD GAS PO2 157.9 mmHg (80-100)
[2016-12-24 07:14] LABS: ALLEN TEST NO; ARTERIAL BLOOD GAS PO2T 157.9 (80-100); ATS? YES
[2016-12-25] VITALS (1238 sets, daily range): BP systolic 139–159; BP diastolic 61–82; PULSE 74–96; TEMP 97–100.3; O2SAT 74–100
[2016-12-25 06:06] LABS: ALBUMIN 3.8 gm/dL (3.5-5.0); CALCIUM 9.2 mg/dL (8.4-10.2); CREATININE, serum 0.74 mg/dL (0.66-1.25); PHOSPHOROUS 3.1 mg/dL (2.5-4.5); POTASSIUM 3.9 mmol/L (3.4-5.0)
[2016-12-26] VITALS (1216 sets, daily range): BP systolic 124–191; BP diastolic 72–111; PULSE 70–110; TEMP 96.5–98.7; O2SAT 70–100
[2016-12-27] VITALS (1436 sets, daily range): BP systolic 140–182; BP diastolic 73–88; PULSE 78–118; TEMP 98–99.9; O2SAT 77–100
[2016-12-27 04:55] LABS: ARTERIAL BLD GAS O2 SATURATION 88.6 % (92-100); ARTERIAL BLD GAS TCO2 CT 28.6; ARTERIAL BLOOD GAS BASE EXCESS 0.4 (-2-2); ARTERIAL BLOOD GAS PO2 57.7 mmHg (80-100); ARTERIAL BLOOD GAS pH 7.33 (7.35-7.45); OXYHEMOGLOBIN 87.7 %
[2016-12-27 04:56] LABS: ALLEN TEST NO; ATS? YES
[2016-12-27 06:37] LABS: CREATININE, serum 0.64 mg/dL (0.66-1.25); MAGNESIUM 1.7 mg/dL (1.6-2.3); POTASSIUM 3.4 mmol/L (3.4-5.0)
[2016-12-28] VITALS (1405 sets, daily range): BP systolic 94–160; BP diastolic 54–101; PULSE 78–96; TEMP 97.7–99.5; O2SAT 60–100
[2016-12-28 08:26] LABS: CALCIUM 9.3 mg/dL (8.4-10.2); CREATININE, serum 0.63 mg/dL (0.66-1.25); MAGNESIUM 1.8 mg/dL (1.6-2.3); PHOSPHOROUS 3.6 mg/dL (2.5-4.5); POTASSIUM 3.6 mmol/L (3.4-5.0)
[2016-12-29] VITALS (1347 sets, daily range): BP systolic 121–147; BP diastolic 59–83; PULSE 74–95; TEMP 96.9–98.8; O2SAT 86–100
[2016-12-29 06:33] LABS: CALCIUM 9.1 mg/dL (8.4-10.2); CREATININE, serum 0.6 mg/dL (0.66-1.25); MAGNESIUM 1.7 mg/dL (1.6-2.3); PHOSPHOROUS 3.5 mg/dL (2.5-4.5); POTASSIUM 3.5 mmol/L (3.4-5.0)
[2016-12-30] VITALS (868 sets, daily range): BP systolic 121–157; BP diastolic 61–78; PULSE 75–85; TEMP 97.6–99.1; O2SAT 67–100
[2016-12-30 05:46] LABS: ARTERIAL BLD GAS O2 SATURATION 96.3 % (92-100); ARTERIAL BLD GAS TCO2 CT 40.3; ARTERIAL BLOOD GAS BASE EXCESS 10.4 (-2-2); ARTERIAL BLOOD GAS HCO3 38.2 meq/L (22-26); ARTERIAL BLOOD GAS PO2 89.1 mmHg (80-100); ARTERIAL BLOOD GAS pH 7.36 (7.35-7.45); OXYHEMOGLOBIN 95.3 %
[2016-12-30 05:47] LABS: ALLEN TEST YES; ALLENS TEST RESULT PASS; ATS? YES
[2016-12-31] VITALS (360 sets, daily range): BP systolic 142–157; BP diastolic 66–91; PULSE 78–83; TEMP 98.2–98.9; O2SAT 80–100
[2016-12-31 05:50] LABS: CALCIUM 9.1 mg/dL (8.4-10.2); CREATININE, serum 0.55 mg/dL (0.66-1.25); MAGNESIUM 1.7 mg/dL (1.6-2.3); PHOSPHOROUS 2.9 mg/dL (2.5-4.5); POTASSIUM 4.3 mmol/L (3.4-5.0)
[2016-12-31] MEDS ORDERED: VECURONIUM IV (09:41)
[2016-12-31] MEDS ORDERED: APRESOLINE 220 MG/ML IV (09:41)
[2016-12-31] MEDS ORDERED: IPRATROPIUM BROM3 M1 IH ×2 (09:41)
[2016-12-31] MEDS ORDERED: ZANAFLEX2 MG PO (09:41)
[2016-12-31] MEDS ORDERED: NORCO 325 MG-51 TAB PO (09:41)
== END 2016-12-31 12:14 | DRG 4 ==
LOC: ICU 20:15
PROVIDERS: Family Medicine; Internal Medicine; Internal Medicine Nephrology; Internal Medicine Pulmonary Disease; Nurse Practitioner; Otolaryngology
PROC: 5A1955Z Respiratory Ventilation, Greater than 96 Consecutive Hours (ICD-10-PCS; 2016-12-08)
PROC: 0BH18EZ Insertion of Endotracheal Airway into Trachea, Via Natural or Artificial Opening Endoscopic (ICD-10-PCS; 2016-12-08)
PROC: 02H633Z Insertion of Infusion Device into Right Atrium, Percutaneous Approach (ICD-10-PCS; 2016-12-08)
PROC: 0DH68UZ Insertion of Feeding Device into Stomach, Via Natural or Artificial Opening Endoscopic (ICD-10-PCS; 2016-12-16)
PROC: 0B110F4 Bypass Trachea to Cutaneous with Tracheostomy Device, Open Approach (ICD-10-PCS; principal; 2016-12-16 14:00)
PROC: 0DH63UZ Insertion of Feeding Device into Stomach, Percutaneous Approach (ICD-10-PCS; 2016-12-25)
DX: I11.0 Hypertensive heart disease with heart failure (principal); J96.21 Acute and chronic respiratory failure with hypoxia; J96.22 Acute and chronic respiratory failure with hypercapnia; L03.311 Cellulitis of abdominal wall; L03.116 Cellulitis of left lower limb; L03.115 Cellulitis of right lower limb; Z68.44 Body mass index [BMI] 60.0-69.9, adult; Z66 Do not resuscitate; E66.01 Morbid (severe) obesity due to excess calories; I50.33 Acute on chronic diastolic (congestive) heart failure; E11.65 Type 2 diabetes mellitus with hyperglycemia; G25.81 Restless legs syndrome; E78.5 Hyperlipidemia, unspecified; G47.33 Obstructive sleep apnea (adult) (pediatric); Z79.84 Long term (current) use of oral hypoglycemic drugs; Z85.47 Personal history of malignant neoplasm of testis; Z79.4 Long term (current) use of insulin; Z92.3 Personal history of irradiation; Z91.128 Patient's intentional underdosing of medication regimen for other reason; L89.321 Pressure ulcer of left buttock, stage 1; R50.9 Fever, unspecified
CPT/HCPCS: 90791-AI; 99223-AI; 99231-AI; 99232-AI; 99233-AI; 99239; A7521; C1751; C8924; J0360; J0456; J0692; J0696; J1120; J1170; J1630; J1644; J1650; J1815; J1940; J2060; J2250; J2370; J2543; J2704; J2997; J3010; J3370; J3475; J3480; J7030; J7040; J7050; J7120

== ENCOUNTER → 2016-12-08 | Outpatient (REF) ==
[~2016-12-08] MED LIST: COREG 25MG25 MG/TAB PO; GLUCOPHAGE1000 MG PO; LASIX 40MG TABL40 MG PO; MIRAPEX 1MG PO; NOVOLIN 70/30 710 ML SQ; PRAVACHOL 40MG40 MG PO; PRILOSEC 20MG20 MG PO; ZYRTEC 10MG10 MG PO
== END ==
LOC: ZLAB.WCH 08:42
DX: Z01.89 Encounter for other specified special examinations (principal)

== ENCOUNTER 2017-01-20 10:26 | Inpatient (IN) | payer OTHER, MEDICAID ==
[~2017-01-20] VITALS: Ht 177.8 cm; Wt 177.3 kg
[~2017-01-20 10:26] MED LIST changes: +APRESOLINE 220 MG/ML IV; +IPRATROPIUM BROM3 M1 IH; +NORCO 325 MG-51 TAB PO; +VECURONIUM IV; +ZANAFLEX2 MG PO
[2017-01-20 19:51] VITALS: BP 150/54; PULSE 84; TEMP 98.4
[2017-01-21] MEDS ORDERED: TYLENOL 325MG325 MG PO (02:43)
[2017-01-21] MEDS ORDERED: ALBUTEROL0.83 MG/ML IH (02:47)
[2017-01-21] MEDS ORDERED: LIPITOR 10MG10 MG PO (02:48)
[2017-01-21] MEDS ORDERED: BACITRACIN TOPIC1 TU TOP (02:50)
[2017-01-21] MEDS ORDERED: LEXAPRO 10MG10 MG PO (02:50)
[2017-01-21] MEDS ORDERED: GLUCAGEN HYPOKIT1 MG IM (02:52)
[2017-01-21] MEDS ORDERED: CVS GLUCOSE PO (02:53)
[2017-01-21] MEDS ORDERED: HUMALOG100 U/ML SQ (02:55)
[2017-01-21] MEDS ORDERED: NORCO 325 MG-51 TAB PO (02:57)
[2017-01-21] MEDS ORDERED: LANTUS100 U/ML SQ (03:36)
[2017-01-21] MEDS ORDERED: ZESTRIL 10MG10 MG PO (03:37)
[2017-01-21] MEDS ORDERED: CLARITIN 1010 MG/TAB PO (03:38)
[2017-01-21] MEDS ORDERED: MICRO-GUARD21 TP ×2 (03:39)
[2017-01-21] MEDS ORDERED: MIRAPEX 1MG PO (03:48)
[2017-01-21] MEDS ORDERED: SEROQUEL 2525 MG/TAB PO (03:50)
[2017-01-21 03:54] VITALS: BP 121/63; PULSE 66; TEMP 97.1
[2017-01-21 17:48] VITALS: BP 12/59; PULSE 82; TEMP 98.2
[2017-01-22 06:28] VITALS: BP 125/55; PULSE 78; TEMP 97.1
[2017-01-22 15:46] VITALS: BP 108/36; PULSE 83; TEMP 97.6
[2017-01-23 06:00] VITALS: BP 111/41; PULSE 69; TEMP 98.5
[2017-01-23 07:59] LABS: BASO # 0.1 (0.0-0.2); BASO % 0.5 % (0.0-2.0); EOS # 0.3 (0.0-0.7); EOS % 3.2 % (0-4.0); GRAN # 7.5 (1.4-6.5); GRAN % 71.5 % (42.2-75.2); HEMATOCRIT 37.2 % (42.0-52.0); LYMPH # 1.9 (1.2-3.4); LYMPH % 18.3 % (20.0-51.0); MEAN CELL VOLUME 82 fl (80.0-100.0); MEAN CORPUSCULAR HEMOGLOBIN 24 pg (27.0-31.0); MEAN CORPUSCULAR HGB CONC 29 g/dl (33.0-37.0); MEAN PLATELET VOLUME 10.4 fl (7.4-10.4); MONO # 0.6 (0.1-0.6); MONO % 5.6 % (1.7-9.3); PLATELET COUNT 232 K/mm3 (130-400); RED BLOOD COUNT 4.55 M/mm3 (4.20-5.60); WHITE BLOOD COUNT 10.5 K/mm3 (4.8-10.8)
[2017-01-23 08:05] LABS: HEMOGLOBIN 10.8 g/dl (13.5-18.0)
[2017-01-23 08:12] LABS: CALCIUM 9.3 mg/dL (8.4-10.2); CREATININE, serum 0.77 mg/dL (0.66-1.25); POTASSIUM 3.8 mmol/L (3.4-5.0)
[2017-01-23 15:54] VITALS: BP 131/43; PULSE 74; TEMP 98.2
[2017-01-24 05:25] VITALS: BP 136/53; PULSE 74; TEMP 98.3
[2017-01-24 17:05] VITALS: BP 105/54; PULSE 72; TEMP 98.5
[2017-01-25 05:11] VITALS: BP 112/40; PULSE 79; TEMP 98.4
[2017-01-25 17:15] VITALS: BP 110/52; PULSE 78; TEMP 98.3
[2017-01-26 06:00] VITALS: BP 115/40; PULSE 82; TEMP 98.4
[2017-01-26 18:05] VITALS: BP 151/71; PULSE 76; TEMP 98.7
[2017-01-27 05:33] VITALS: BP 141/84; PULSE 75; TEMP 98.5
[2017-01-27] MEDS ORDERED: BACTRIM DS 8001 TAB PO (09:24)
[2017-01-27] MEDS ORDERED: SEROQUEL 2525 MG/TAB PO (09:25)
[2017-01-27] MEDS ORDERED: NORCO 325 MG-51 TAB PO (09:25)
== END 2017-01-27 12:30 | disposition home or self-care (01) | DRG 91 ==
PROVIDERS: Family Medicine
DX: G72.81 Critical illness myopathy (principal); J96.21 Acute and chronic respiratory failure with hypoxia; I50.33 Acute on chronic diastolic (congestive) heart failure; Z68.43 Body mass index [BMI] 50.0-59.9, adult; E66.01 Morbid (severe) obesity due to excess calories; I10 Essential (primary) hypertension; E11.42 Type 2 diabetes mellitus with diabetic polyneuropathy; G25.81 Restless legs syndrome; Z85.47 Personal history of malignant neoplasm of testis; Z23 Encounter for immunization; E11.65 Type 2 diabetes mellitus with hyperglycemia; R13.10 Dysphagia, unspecified; L89.322 Pressure ulcer of left buttock, stage 2; L08.9 Local infection of the skin and subcutaneous tissue, unspecified
CPT/HCPCS: 99222-AI; 99232-AI; 99239; A9284; J1815

== ENCOUNTER → 2017-02-10 | Outpatient (REF) ==
[~2017-02-10] MED LIST changes: +ALBUTEROL0.83 MG/ML IH; +BACITRACIN TOPIC1 TU TOP; +BACTRIM DS 8001 TAB PO; +CLARITIN 1010 MG/TAB PO; +CVS GLUCOSE PO; +GLUCAGEN HYPOKIT1 MG IM; +HUMALOG100 U/ML SQ; +LANTUS100 U/ML SQ; +LEXAPRO 10MG10 MG PO; +LIPITOR 10MG10 MG PO; +MICRO-GUARD21 TP; +SEROQUEL 2525 MG/TAB PO; +TYLENOL 325MG325 MG PO; +ZESTRIL 10MG10 MG PO
== END ==
LOC: ZLAB.WCH 18:13
DX: Z01.89 Encounter for other specified special examinations (principal)

== ENCOUNTER 2017-02-18 14:00 | Day surgery (SDC) | payer BC, MEDICAID ==
[~2017-02-18] VITALS: Ht 175.3 cm; Wt 168.6 kg
[2017-02-18 14:19] VITALS: BP 141/57; PULSE 81; TEMP 93
[2017-02-18] MEDS ORDERED: NOVOLOG MIX 70/10 ML SQ (14:35)
[2017-02-18] MEDS ORDERED: ZOLOFT 25MG25 MG PO (14:36)
[2017-02-18] MEDS ORDERED: GLUCOPHAGE1000 MG PO (14:39)
[2017-02-18] MEDS ORDERED: PRILOSEC 20MG20 MG PO (14:40)
[2017-02-18] MEDS ORDERED: FLEXERIL 1010 MG/TAB PO (14:43)
[2017-02-18] MEDS ORDERED: ZYRTEC 10MG10 MG PO (14:44)
[2017-02-18] MEDS ORDERED: NEURONTIN300 MG/CAP PO (14:45)
[2017-02-18 16:10] VITALS: BP 159/86; PULSE 75
== END 2017-02-18 16:15 | disposition home or self-care (01) ==
LOC: SDCO 14:00
DX: K94.23 Gastrostomy malfunction (principal)
CPT/HCPCS: OP

== ENCOUNTER 2017-05-14 08:00 | Outpatient (RCR) | payer BC, MEDICAID ==
[~2017-05-14 08:00] MED LIST changes: +FLEXERIL 1010 MG/TAB PO; +NEURONTIN300 MG/CAP PO; +NOVOLOG MIX 70/10 ML SQ; +ZOLOFT 25MG25 MG PO
== END 2017-06-01 | disposition home or self-care (01) ==
LOC: WSPT
DX: R53.81 Other malaise (principal)
CPT/HCPCS: G8978-GP; G8979-GP

== ENCOUNTER → 2017-07-01 | Outpatient (REF) | LOC: ZLAB.WCH 08:35 | DX: Z01.89 Encounter for other specified special examinations (principal) ==

== ENCOUNTER 2017-08-28 14:45 | Outpatient (RCR) | payer BC, MEDICAID | END 2017-09-29 15:45 | disposition home or self-care (01) | LOC: WSPT 14:45 | DX: I89.0 Lymphedema, not elsewhere classified (principal); R53.81 Other malaise ==

== ENCOUNTER → 2018-01-18 | Outpatient (REF) | LOC: ZLAB.WCH 18:23 | DX: Z01.89 Encounter for other specified special examinations (principal) ==

== ENCOUNTER 2018-02-15 12:45 | Inpatient (IN) | payer BC, MEDICARE ==
[~2018-02-15] VITALS: Ht 175.3 cm; Wt 194.6 kg
[2018-02-15] VITALS (186 sets, daily range): BP systolic 177; BP diastolic 69; PULSE 68–71; TEMP 98.3; O2SAT 89–100
[2018-02-15 14:02] LABS: BASO # 0.1 (0.0-0.2); BASO % 0.6 % (0.0-2.0); EOS # 0.2 (0.0-0.7); EOS % 1.7 % (0-4.0); GRAN # 8.9 (1.4-6.5); HEMATOCRIT 39.5 % (42.0-52.0); LYMPH # 1.4 (1.2-3.4); MEAN CELL VOLUME 82 fl (80.0-100.0); MEAN CORPUSCULAR HEMOGLOBIN 23 pg (27.0-31.0); MEAN CORPUSCULAR HGB CONC 28 g/dl (33.0-37.0); MEAN PLATELET VOLUME 10.9 fl (7.4-10.4); MONO % 8.4 % (1.7-9.3); PLATELET COUNT 210 K/mm3 (130-400); RED BLOOD COUNT 4.84 M/mm3 (4.20-5.60); REDCELL DISTRIBUTION WIDTH-CV 16.4 % (11.5-14.5)
[2018-02-15 14:13] LABS: BILIRUBIN,TOTAL 0.3 mg/dL (0.0-1.0); CALCIUM 8.8 mg/dL (8.4-10.2); CREATININE, serum 1.41 mg/dL (0.66-1.25); TOTAL PROTEIN 7.8 gm/dL (6.4-8.2)
[2018-02-15 14:25] LABS: POTASSIUM 5.8 mmol/L (3.4-5.0)
[2018-02-15 15:40] LABS: COLLECTION METHOD CLEAN CATCH
[2018-02-15 15:46] LABS: MUCOUS Present /lpf; PH 5 (5-8); SQUAMOUS EPITHELIAL 0-2 /hpf; URINE APPEARANCE Clear; URINE BACTERIA None Seen /hpf; URINE BILIRUBIN Negative (NEGATIVE); URINE BLOOD Negative (NEGATIVE); URINE COLOR Yellow; URINE GLUCOSE Negative (NEGATIVE); URINE KETONE Negative (NEGATIVE); URINE LEUKOCYTE ESTERASE Negative (NEGATIVE); URINE NITRATE Negative (NEGATIVE); URINE PROTEIN(semi-quant) Negative (NEGATIVE); URINE RBC None Seen /hpf; URINE UROBILINOGEN Negative (NEGATIVE)
[2018-02-15] MEDS ORDERED: TYLENOL 325MG325 MG PO (15:58)
[2018-02-15] MEDS ORDERED: COREG 25MG25 MG/TAB PO (15:59)
[2018-02-15] MEDS ORDERED: VITAMIN C500 MG PO (15:59)
[2018-02-15] MEDS ORDERED: ZYRTEC 10MG10 MG PO (16:00)
[2018-02-15] MEDS ORDERED: FLEXERIL 1010 MG/TAB PO (16:00)
[2018-02-15] MEDS ORDERED: DIABETIC TUSSI PO (16:02)
[2018-02-15] MEDS ORDERED: FOLIC ACID 11 MG/TA1 PO (16:03)
[2018-02-15] MEDS ORDERED: NEURONTIN300 MG/CAP PO (16:03)
[2018-02-15] MEDS ORDERED: MUCUS RELIEF400 M1 PO (16:04)
[2018-02-15] MEDS ORDERED: NORCO 325 MG-51 TAB PO (16:05)
[2018-02-15] MEDS ORDERED: LEVEMIR100 U/ML SQ (16:06)
[2018-02-15] MEDS ORDERED: ANTI-DIARRHEAL2 MG PO (16:07)
[2018-02-15] MEDS ORDERED: ZESTRIL 10MG10 MG PO (16:07)
[2018-02-15] MEDS ORDERED: MAG-OX 400400 MG/TAB PO (16:08)
[2018-02-15] MEDS ORDERED: GLUCOPHAGE1000 MG PO (16:09)
[2018-02-15] MEDS ORDERED: ZAROXOLYN5 MG PO (16:09)
[2018-02-15] MEDS ORDERED: MILK OF MA400 MG/52 (16:10)
[2018-02-15] MEDS ORDERED: NOVOLOGMIX70/30 SQ (16:11)
[2018-02-15] MEDS ORDERED: MIRAPEX 1MG PO (16:11)
[2018-02-15] MEDS ORDERED: K-DUR20 MEQ PO (16:12)
[2018-02-15] MEDS ORDERED: PRILOSEC 20MG20 MG (16:12)
[2018-02-15] MEDS ORDERED: ZOLOFT 100MG100 MG PO (16:13)
[2018-02-15] MEDS ORDERED: PROAIR HFA0.09 MG/AC IH (16:13)
[2018-02-15] MEDS ORDERED: CIALIS5 MG PO (16:14)
[2018-02-15] MEDS ORDERED: ZOLOFT 25MG25 MG PO (16:14)
[2018-02-15] MEDS ORDERED: DEPO-TESTOS100 MG/ML IM (16:16)
[2018-02-15] MEDS ORDERED: DESYREL 50MG50 MG PO (16:17)
[2018-02-15] MEDS ORDERED: NATURAL E400 IU PO (16:17)
[2018-02-15 16:52] LABS: ARTERIAL BLD GAS O2 SATURATION 92.4 % (92-100); ARTERIAL BLD GAS TCO2 CT 35.2; ARTERIAL BLOOD GAS BASE EXCESS 5.4 (-2-2); ARTERIAL BLOOD GAS HCO3 33.2 meq/L (22-26); ARTERIAL BLOOD GAS PO2 70.9 mmHg (80-100); ARTERIAL BLOOD GAS pH 7.32 (7.35-7.45)
[2018-02-15 16:53] LABS: ARTERIAL BLOOD GAS PCO2 65.8 mmHg (35-45)
[2018-02-15 18:17] LABS: CALCIUM 8.9 mg/dL (8.4-10.2); CREATININE, serum 1.35 mg/dL (0.66-1.25); POTASSIUM 5.2 mmol/L (3.4-5.0)
[2018-02-15 22:23] LABS: ARTERIAL BLD GAS TCO2 CT 38.1; ARTERIAL BLOOD GAS BASE EXCESS 6.4 (-2-2); ARTERIAL BLOOD GAS HCO3 35.7 meq/L (22-26); ARTERIAL BLOOD GAS PCO2 79.7 mmHg (35-45); ARTERIAL BLOOD GAS PO2 83.3 mmHg (80-100); ARTERIAL BLOOD GAS pH 7.27 (7.35-7.45)
[2018-02-16] VITALS (499 sets, daily range): BP systolic 105–159; BP diastolic 51–95; PULSE 65–82; TEMP 97.8–99.3; O2SAT 62–100
[2018-02-16 00:28] LABS: ARTERIAL BLD GAS O2 SATURATION 95.2 % (92-100); ARTERIAL BLD GAS TCO2 CT 36.7; ARTERIAL BLOOD GAS HCO3 34.7 meq/L (22-26); ARTERIAL BLOOD GAS PO2 84.8 mmHg (80-100); ARTERIAL BLOOD GAS pH 7.34 (7.35-7.45)
[2018-02-16 00:29] LABS: ARTERIAL BLOOD GAS PCO2 66.4 mmHg (35-45)
[2018-02-16] MEDS ORDERED: NATURAL E400 IU PO (03:49)
[2018-02-16] MEDS ORDERED: [UNRECOGNIZED DRUG - OTHER] (04:06)
[2018-02-16] MEDS ORDERED: GUAIFENESIN (04:06)
--- NOTE | 2018-02-16 07:00 | NUR ---
Report received from FRANSICO Jefferson. pT in bed resting with bipap on. In beriatric bed, denies needs, will continue to monitor.
[2018-02-16 08:54] LABS: BASO # 0.1 (0.0-0.2); BASO % 0.6 % (0.0-2.0); EOS # 0.2 (0.0-0.7); EOS % 1.8 % (0-4.0); GRAN # 6.9 (1.4-6.5); HEMATOCRIT 39.6 % (42.0-52.0); HEMOGLOBIN 11.4 g/dl (13.5-18.0); LYMPH # 1.6 (1.2-3.4); LYMPH % 16.3 % (20.0-51.0); MEAN CELL VOLUME 79 fl (80.0-100.0); MEAN CORPUSCULAR HEMOGLOBIN 23 pg (27.0-31.0); MEAN CORPUSCULAR HGB CONC 29 g/dl (33.0-37.0); MEAN PLATELET VOLUME 10.8 fl (7.4-10.4); MONO # 0.8 (0.1-0.6); MONO % 8.7 % (1.7-9.3); PLATELET COUNT 192 K/mm3 (130-400); RED BLOOD COUNT 5.02 M/mm3 (4.20-5.60); REDCELL DISTRIBUTION WIDTH-CV 16.6 % (11.5-14.5)
[2018-02-16 09:01] LABS: CALCIUM 8.9 mg/dL (8.4-10.2); CREATININE, serum 1.23 mg/dL (0.66-1.25); POTASSIUM 5.1 mmol/L (3.4-5.0)
--- NOTE | 2018-02-16 10:29 | NUR ---
Assessment charted. pt up to chair for breakfast. up to commode for bowel movementx1 and then had bowel movement in chair later. Denies pain. Family at bedside visiting patient. Dr. Robles here to see pt at this time. wearing bipap when not eating or talking, on o2 at 5L when eating and talking. Will continue to monitor.
--- NOTE | 2018-02-16 14:00 | NUR ---
Report given to FRANSICO Rodriguez on surgical who will resume care. all belngings transported up by pt family. Pt transferred in beriatric bed with security and RT with bipap. Oriented to room, family at bedside. Surgical to resme care.
--- NOTE | 2018-02-16 14:30 | NUR ---
PATIENT ADMITED FROM ICU INTO ROOM 348 WITH RESPIRATORY FAILURE. PATIENT HAS HX OF RESPIRATORY FAILURE, VENTED FOR 1 MONTH, CHF & OBESITY. PATIENT IS NON-COMPLIENT WITH DIABETIC AND HEART HEALTHY DIET. PATIENT HAS BEEN IN OUR REHAB PROGRAM IN THE PAST AND IS CURRENTLY IN A CARE SETTING. FAMILY ENABLES PATIENT AND EVEN BROUGHT HIM TACO MCCOY WHILE IN ER FOR RESPIRATORY DISTRESS. BI-PAP AT BEDSIDE PRN. PATIENT IS CURRENTLY ON 02 @ 5L PER NC WITH SATS IN MID 90'S. PATIENT GETS SOB EASILY WITH SMALL AMOUNTS OF ACTIVITY. A&P LUNG SANCHEZ DEMINISHED. PULMONOLOGY CONSULTED. PATIENT WANTING TO SHOWER UPON ADMISSION TO FLOOR. PATIENT ASSISTED TO SHOWER AND IS NOW RESTING UP IN BED. AT BEDSIDE. HEAD TO TOE ASSESSMENT COMPLETE. NOTED TIGHT, RED, SWOLLEN BLE. PT/OT ORDERED. PATIENT MOSTLY UNMOTIVATED TO DO MOST THINGS FOR HIMSELF AND IS PHYSICALLY UNABLE TO DO PATTIE-CARES AND/OR BASIC HYGIENE DUE TO HIS OBESITY. VSS. NO NEEDS AT THIS TIME. CALL LIGHT IN REACH.
--- NOTE | 2018-02-16 20:00 | NUR ---
Patient in chair resting. Alert and oriented x 3. Shift assessment complete. Edema noted to BLE. INT to right hand. Patient denies pain at this time. Denies further needs at this time.
[2018-02-17 00:48] VITALS: BP 116/51; PULSE 75; TEMP 100.1
[2018-02-17 04:29] VITALS: BP 146/99; PULSE 80; TEMP 98.6
--- NOTE | 2018-02-17 05:11 | NUR ---
Patient has rested well through the night. Minimal needs. Has been up to restroom with stand by assist, steady gait. Continues to deny pain. Bipap on through most of the night, however patient states that he has a difficult time sleeping with bipap on. Requested trilogy be used instead, patient has worn trilogy machine throughout the remainder of the night. Denies further needs at this time. Will report off to day shift.
[2018-02-17 08:29] VITALS: BP 166/49; PULSE 87; TEMP 99
[2018-02-17 08:50] LABS: HEMATOCRIT 38.7 % (42.0-52.0); HEMOGLOBIN 11.2 g/dl (13.5-18.0); MEAN CELL VOLUME 79 fl (80.0-100.0); MEAN CORPUSCULAR HEMOGLOBIN 23 pg (27.0-31.0); MEAN CORPUSCULAR HGB CONC 29 g/dl (33.0-37.0); MEAN PLATELET VOLUME 10.7 fl (7.4-10.4); PLATELET COUNT 190 K/mm3 (130-400); RED BLOOD COUNT 4.89 M/mm3 (4.20-5.60); REDCELL DISTRIBUTION WIDTH-CV 16.8 % (11.5-14.5)
[2018-02-17 09:06] LABS: CALCIUM 8.9 mg/dL (8.4-10.2); CREATININE, serum 1.08 mg/dL (0.66-1.25); MAGNESIUM 2.2 mg/dL (1.6-2.3); POTASSIUM 4.4 mmol/L (3.4-5.0)
--- NOTE | 2018-02-17 11:00 | NUR ---
Patient has been doing ok this am. Denies pain or nausea. He has been up in the room moving from bed to chair. He gets very short of breath when he goes much further. He has been placed on telemetry in plans of discharging to [facility]. No other changes at this time. Call light within reach.
--- NOTE | 2018-02-17 11:33 | NUR ---
Initial visit; Patient thanked Coater Operator for looking in on him and offering spiritual care. Patient declined but was receptive to Coater Operator keeping him in her prayers.
[2018-02-17 11:48] VITALS: BP 152/56; PULSE 92; TEMP 98.1
[2018-02-17 12:23] LABS: BAND 3 % (0-10); BASOPHIL 1 % (0-2); EOSINOPHIL 2 % (0-4); LYMPHOCYTE 7 % (20.0-51.0); NEUTROPHILS 84 % (42.0-75.2); PLATELET ESTIMATE NORMAL (NORMAL); POLYCHROMASIA 1+
[2018-02-17 12:24] LABS: ANISOCYTOSIS 1+; HYPOCHROMIA 1+; OVALOCYTES 1+; STOMATOCYTE 1+
--- NOTE | 2018-02-17 14:01 | NUR ---
KASEY met with patient to discuss discharge planning. Patient has been at [facility] and rehab for skilled care since mid january. He does not feel that he is getting the level of care there that he needs to sucessfully return home. Patient reports that he has two children in High School and he does not want to miss all of their big moments so he wants to go somewhere that will help him not only lose weight but also help with his medical needs. He has been to [facility] in the past and is willing to go there again if they are able to accept however he said he didn't qualify for it when he was at [facility] on 01/25/18. Patients PCP is Dr Ziegler and [facility]. Patient lives in [place] prior to his rehab stay with his Stefanie and children. KASEY called Kaleb at [facility]. He did not see a referral from [place] but is willing to take a look at him. KASEY faxed clinical information to kaleb. Kaleb reported patient qualifys by their qualifications and that they have sent it to [facility] as they would be the primary. KASEY informed patient and his of this. KASEY will continue to follow.
[2018-02-17 15:27] VITALS: BP 144/56; PULSE 85; TEMP 99.1
--- NOTE | 2018-02-17 18:00 | NUR ---
Patient continues to have shortness of breath with O2 at 6l/min. He wants to shower but the bathroom shower is too small. We discussed having him use a different shower tomorrow. His IV was discontinue earlier this afternoon, it was cleared with hospitalist before removing. The patient stated it was causing too much pain in his hand when walking with the walker. No other changes at this time. Call light within reach.
[2018-02-17 20:00] VITALS: BP 151/48; PULSE 82; TEMP 99.2
--- NOTE | 2018-02-17 20:00 | NUR ---
Patient resting in bedside recliner at this time. Patient to bathroom independently where he had a medium bowel movement, patient only required assistance with hygine afterward. Patient SpO2 is 93% on 5L O2 via NC. Patient denies pain or further needs at this time, call light within reach.
[2018-02-18 04:00] VITALS: BP 129/76; BP 155/61; PULSE 75; PULSE 82; TEMP 98.6
[2018-02-18 06:04] LABS: ARTERIAL BLD GAS O2 SATURATION 96.5 % (92-100); ARTERIAL BLD GAS TCO2 CT 36.2; ARTERIAL BLOOD GAS HCO3 34.4 meq/L (22-26); ARTERIAL BLOOD GAS PCO2 57.2 mmHg (35-45); ARTERIAL BLOOD GAS PO2 96.2 mmHg (80-100)
--- NOTE | 2018-02-18 06:59 | NUR ---
Patient rested well overnight. Patient wore bi-pap per order, SpO2 remained at 99-100% while wearing. Patient did have an episode when he got up to bathroom independently without his oxygen. Patient SpO2 dropped to high 70's and patient required assistance putting Bi-pap mask back on, confusion and tachypenia resolved quickly when oxygen was replaced. Patient has denied pain or further needs, call light within reach.
[2018-02-18 08:25] VITALS: BP 145/88; PULSE 94; TEMP 98.5
[2018-02-18 09:23] LABS: BASO % 0.2 % (0.0-2.0); EOS # 0.2 (0.0-0.7); EOS % 1.7 % (0-4.0); GRAN % 80.9 % (42.2-75.2); HEMATOCRIT 36.8 % (42.0-52.0); HEMOGLOBIN 10.6 g/dl (13.5-18.0); LYMPH # 1.3 (1.2-3.4); LYMPH % 10.1 % (20.0-51.0); MEAN CELL VOLUME 79 fl (80.0-100.0); MEAN CORPUSCULAR HEMOGLOBIN 23 pg (27.0-31.0); MEAN CORPUSCULAR HGB CONC 29 g/dl (33.0-37.0); MEAN PLATELET VOLUME 10.9 fl (7.4-10.4); MONO # 0.8 (0.1-0.6); MONO % 6.5 % (1.7-9.3); PLATELET COUNT 182 K/mm3 (130-400); RED BLOOD COUNT 4.67 M/mm3 (4.20-5.60)
[2018-02-18 09:27] LABS: CALCIUM 8.9 mg/dL (8.4-10.2); CREATININE, serum 1.04 mg/dL (0.66-1.25); POTASSIUM 4.1 mmol/L (3.4-5.0)
--- NOTE | 2018-02-18 10:20 | NUR ---
KASEY spoke with Kaleb from [facility]. He will come today to meet with patient. He reports they should be able to accept tomorrow to [facility].
[2018-02-18 11:50] VITALS: BP 142/62; PULSE 88; TEMP 99
[2018-02-18 16:40] VITALS: BP 152/69; PULSE 81; TEMP 98.2
--- NOTE | 2018-02-18 18:00 | NUR ---
Patient has been doing well today. He has been independent in the room. He was able to use the shower room on [facility] to shower today. His and family have been here visiting today. Reina came by to see the patient today and accepted him. He will be discharging tomorrow. Reina is hoping the patient will be ready to discharge by 1100. No other changes at this time. Call light within reach.
[2018-02-18 21:14] VITALS: BP 147/67; PULSE 83; TEMP 98.3
[2018-02-18 23:53] VITALS: BP 122/31; PULSE 61; TEMP 98.5
[2018-02-19 03:09] VITALS: BP 166/85; PULSE 77; TEMP 98.2
--- NOTE | 2018-02-19 04:21 | NUR ---
Pt sitting on side of bed, shift assessments completed, no significant findings, no C/O pain at this time, left Pt call light in reach, bed in lowest position.
--- NOTE | 2018-02-19 05:52 | NUR ---
Pt slept well during the night, he did use the BIPAP while sleeping, he has been to the restroom during the shift, he has had no C/O pain, VS have been stable.
[2018-02-19 06:14] LABS: BASO % 0.4 % (0.0-2.0); EOS # 0.2 (0.0-0.7); EOS % 2.4 % (0-4.0); GRAN # 7.6 (1.4-6.5); GRAN % 76.2 % (42.2-75.2); HEMATOCRIT 39.9 % (42.0-52.0); HEMOGLOBIN 11.3 g/dl (13.5-18.0); LYMPH # 1.4 (1.2-3.4); LYMPH % 13.7 % (20.0-51.0); MEAN CELL VOLUME 80 fl (80.0-100.0); MEAN CORPUSCULAR HEMOGLOBIN 23 pg (27.0-31.0); MEAN CORPUSCULAR HGB CONC 28 g/dl (33.0-37.0); MEAN PLATELET VOLUME 10.2 fl (7.4-10.4); MONO # 0.7 (0.1-0.6); MONO % 6.6 % (1.7-9.3); PLATELET COUNT 161 K/mm3 (130-400); RED BLOOD COUNT 4.98 M/mm3 (4.20-5.60); REDCELL DISTRIBUTION WIDTH-CV 16.8 % (11.5-14.5)
[2018-02-19 06:42] LABS: CALCIUM 8.9 mg/dL (8.4-10.2); CREATININE, serum 1.04 mg/dL (0.66-1.25); POTASSIUM 4.2 mmol/L (3.4-5.0)
[2018-02-19 07:57] VITALS: BP 176/80; PULSE 91; TEMP 98.3
--- NOTE | 2018-02-19 08:37 | NUR ---
Patient sitting up in chair. He is anticipating discharge to [facility] later this am. He is ready to get to rehab to get stronger. He report dyspnea with exertion, but not at rest. Stable on o2. He tolerated breakfast, insulin and home meds per orders. No IV. Will monitor. Tele on.
--- NOTE | 2018-02-19 09:05 | NUR ---
SW met with patient to present IM and verbally discuss the contents. Patient was agreeable and signed the form. Original placed on chart. SW spoke with Kaleb at [facility] and we are good for transfer this AM. His admitting dr will be Dr Trevino and he will be in room 112. Nurse to nurse number is [phone] and fax for discharge is [phone]. Patient informed of the room and dc time. Ambulance set up for 10:30 brain picker for transport. Patient is dc to [facility] in [place].
[2018-02-19 09:18] VITALS: BP 176/80; PULSE 91; TEMP 98.3
--- NOTE | 2018-02-19 09:47 | NUR ---
Called report to [facility]. Nurses questions answered. Abulance to arrive at [id number]
--- NOTE | 2018-02-19 10:53 | NUR ---
Patient loaded with EMS. [facility].
== END 2018-02-19 10:55 | DRG 189 ==
LOC: COL.ER 12:45 → SURG 15:48 → ICU 15:48 → SURG 02-16 14:16
PROVIDERS: Emergency Medicine; Internal Medicine; Internal Medicine Pulmonary Disease; Nurse Practitioner Family; Physician Assistant; ADMIT Internal Medicine
DX: J96.22 Acute and chronic respiratory failure with hypercapnia (principal); N17.9 Acute kidney failure, unspecified; Z68.44 Body mass index [BMI] 60.0-69.9, adult; I50.32 Chronic diastolic (congestive) heart failure; E66.2 Morbid (severe) obesity with alveolar hypoventilation; I11.0 Hypertensive heart disease with heart failure; E11.9 Type 2 diabetes mellitus without complications; E87.5 Hyperkalemia; E78.5 Hyperlipidemia, unspecified; Z85.47 Personal history of malignant neoplasm of testis
CPT/HCPCS: 99223-AI; 99232-AI; 99233-AI; 99239; J0610; J1650; J1815; J1940; J7030

== ENCOUNTER → 2018-05-18 | Outpatient (REF) ==
[~2018-05-18] MED LIST changes: +ANTI-DIARRHEAL2 MG PO; +CIALIS5 MG PO; +DEPO-TESTOS100 MG/ML IM; +DESYREL 50MG50 MG PO; +DIABETIC TUSSI PO; +FOLIC ACID 11 MG/TA1 PO; +GUAIFENESIN; +K-DUR20 MEQ PO; +LEVEMIR100 U/ML SQ; +MAG-OX 400400 MG/TAB PO; +MILK OF MA400 MG/52; +MUCUS RELIEF400 M1 PO; +NATURAL E400 IU PO; +NOVOLOGMIX70/30 SQ; +PRILOSEC 20MG20 MG; +PROAIR HFA0.09 MG/AC IH; +VITAMIN C500 MG PO; +ZAROXOLYN5 MG PO; +ZOLOFT 100MG100 MG PO; +[UNRECOGNIZED DRUG - OTHER]
== END ==
LOC: ZLAB.WCH 16:13
DX: Z01.89 Encounter for other specified special examinations (principal)

== ENCOUNTER → 2018-06-08 | Outpatient (REF) | LOC: ZLAB.WCH 17:33 | DX: Z01.89 Encounter for other specified special examinations (principal) ==

== ENCOUNTER → 2018-06-17 | Outpatient (REF) | LOC: ZLAB.WCH 14:16 | DX: Z01.89 Encounter for other specified special examinations (principal) ==

== ENCOUNTER 2018-07-14 18:54 | Observation (INO) | payer BC, MEDICARE ==
[~2018-07-14] VITALS: Ht 175.3 cm; Wt 159.0 kg
[2018-07-14 19:37] LABS: BASO # 0.1 (0.0-0.2); BASO % 0.5 % (0.0-2.0); EOS # 0.1 (0.0-0.7); EOS % 1.3 % (0-4.0); GRAN # 7.6 (1.4-6.5); GRAN % 76.6 % (42.2-75.2); HEMATOCRIT 38.2 % (42.0-52.0); HEMOGLOBIN 10.7 g/dl (13.5-18.0); LYMPH # 1.4 (1.2-3.4); MEAN CELL VOLUME 82 fl (80.0-100.0); MEAN CORPUSCULAR HEMOGLOBIN 23 pg (27.0-31.0); MEAN CORPUSCULAR HGB CONC 28 g/dl (33.0-37.0); MEAN PLATELET VOLUME 10.5 fl (7.4-10.4); MONO # 0.7 (0.1-0.6); MONO % 7.1 % (1.7-9.3); PLATELET COUNT 159 K/mm3 (130-400); RED BLOOD COUNT 4.67 M/mm3 (4.20-5.60)
[2018-07-14 19:42] LABS: INR 1.1 (0.8-3.0); PROTHROMBIN TIME 12.3 SECONDS (9.7-12.8)
[2018-07-14 19:45] LABS: PARTIAL THROMBOPLASTIN TIME 31.9 SECONDS (26.0-37.0)
[2018-07-14] MEDS ORDERED: LASIX 80MG TABL80 MG PO (19:45)
[2018-07-14] MEDS ORDERED: ZYRTEC 10MG10 MG PO (19:46)
[2018-07-14] MEDS ORDERED: COREG 25MG25 MG/TAB PO (19:46)
[2018-07-14] MEDS ORDERED: LUNESTA3 MG PO (19:47)
[2018-07-14] MEDS ORDERED: GRALISE300 MG PO (19:47)
[2018-07-14] MEDS ORDERED: NORCO 325 MG-51 TAB PO (19:48)
[2018-07-14] MEDS ORDERED: FORT1000TA PO (19:49)
[2018-07-14] MEDS ORDERED: PRILOSEC 20MG20 MG PO (19:49)
[2018-07-14] MEDS ORDERED: MIRAPEX 1MG PO (19:50)
[2018-07-14] MEDS ORDERED: MAG-OX 400400 MG/TAB PO (19:51)
[2018-07-14] MEDS ORDERED: CINNAMON500 MG PO (19:51)
[2018-07-14] MEDS ORDERED: IRON 27 MG PO (19:51)
[2018-07-14] MEDS ORDERED: FISH OIL 1000MG1 CAP PO (19:52)
[2018-07-14 19:56] LABS: ALANINE AMINOTRANSFERASE < 6 U/L (21-72); ALBUMIN 3.8 gm/dL (3.5-5.0); ALKALINE PHOSPHATASE 84 U/L (50-136); AST,SGOT 25 U/L (15-37); BILIRUBIN,TOTAL 0.3 mg/dL (0.0-1.0); BLOOD UREA NITROGEN 23 mg/dL (9-20); C-REACTIVE PROTEIN 1.6 mg/dL (0.0-0.9); CALCIUM 8.6 mg/dL (8.4-10.2); CHLORIDE 96 mmol/L (98-107); CREATINE KINASE 31 U/L (55-170); CREATININE, serum 1.04 (0.66-1.25); GLUCOSE 172 mg/dL (74-106); LIPASE 26 U/L (23-300); POTASSIUM 4.1 mmol/L (3.4-5.0); SODIUM 143 mmol/L (137-145); TOTAL PROTEIN 7.7 gm/dL (6.4-8.2)
[2018-07-14 20:00] LABS: CARBON DIOXIDE 39 mmol/L (22-30)
[2018-07-14 20:04] LABS: TROPONIN-I < 0.012 ng/mL (0.000-0.035)
[2018-07-14 20:05] LABS: ANION GAP 8 mmol/L (7-16)
--- NOTE | 2018-07-14 22:50 | NUR ---
Patient arrived to floor by wheelchair, transfers to bed independantly with stand-by. Patient on 5 L oxygen via NC. Vitals stable at this time. Patient reports having some SOB when lying down or with activity. 3+ Pitting edema present to bilateral lower ext. Right ariza has a small open area that is slightly weeping. Erythema present to bilateral pannis, patient requesting nystatin powder. Patient denies significant pain and n/v. Telemetry in place. INT to left hand. No immediate needs reported/observed.
[2018-07-14] MEDS ORDERED: NOVOLOG MIX 70/33 ML SQ (23:33)
[2018-07-14] MEDS ORDERED: ZOLOFT 100MG100 MG PO (23:35)
[2018-07-14] MEDS ORDERED: ZOLOFT 25MG25 MG PO (23:36)
[2018-07-15] VITALS (9 sets, daily range): BP systolic 130–179; BP diastolic 45–87; PULSE 68–80; TEMP 97.8–99.5
[2018-07-15 06:20] LABS: BASO % 0.4 % (0.0-2.0); EOS # 0.1 (0.0-0.7); EOS % 1.6 % (0-4.0); GRAN # 6.2 (1.4-6.5); GRAN % 69.9 % (42.2-75.2); HEMATOCRIT 38.2 % (42.0-52.0); HEMOGLOBIN 10.6 g/dl (13.5-18.0); LYMPH # 1.7 (1.2-3.4); LYMPH % 19.1 % (20.0-51.0); MEAN CELL VOLUME 81 fl (80.0-100.0); MEAN CORPUSCULAR HEMOGLOBIN 23 pg (27.0-31.0); MEAN CORPUSCULAR HGB CONC 28 g/dl (33.0-37.0); MEAN PLATELET VOLUME 11.7 fl (7.4-10.4); MONO # 0.8 (0.1-0.6); MONO % 8.6 % (1.7-9.3); PLATELET COUNT 150 K/mm3 (130-400); REDCELL DISTRIBUTION WIDTH-CV 15.9 % (11.5-14.5)
[2018-07-15 06:49] LABS: CALCIUM 8.5 mg/dL (8.4-10.2); CREATININE, serum 0.99 (0.66-1.25); MAGNESIUM 1.9 mg/dL (1.6-2.3); POTASSIUM 3.6 mmol/L (3.4-5.0)
--- NOTE | 2018-07-15 06:59 | NUR ---
Patient report given to Fito Merino. Patient awake and ordering breakfast.
--- NOTE | 2018-07-15 11:54 | NUR ---
First visit from the gas truck driver. No needs right now.
--- NOTE | 2018-07-15 13:20 | NUR ---
SW attended clinical rounds to discuss discharge planning. Patient lives at home with his and children. Patient's PCP is Dr Ziegler and he obtains prescriptions from [facility]. Patient uses O2, trilogy, and bipap at home. He also has a walker and a cane but does not use those items often. Patient does not have any home health but KASEY thinks patient would be appropriate for those services. SW inquired if patient would be agreeable to these services if they're recommended. Patient reports he is agreeable. SW provided medicare.gov home health resouce list. Patient will review options and report which company he would like to use if PT/OT and doctor recommend those services. Patient is interested in [facility]. KASEY provided form. KASEY and NCM witnessed signature. KASEY provided original and extra copies. SW also placed a copy on his chart. SW will follow as needed.
--- NOTE | 2018-07-15 20:30 | NUR ---
Initial shift assessment done- states would like [place] before bed for leg pain 09/25- o2 at 5L/nc, requesting some jello for snack---having good urine output with lasix IV- knows we need to measure all output-
[2018-07-16 03:48] VITALS: BP 122/54; PULSE 67; TEMP 97.7
--- NOTE | 2018-07-16 05:27 | NUR ---
Quiet night- resting, VSS, Good urine output--has had 4000cc out this shift so fr
[2018-07-16 07:26] LABS: BASO # 0.1 (0.0-0.2); BASO % 0.5 % (0.0-2.0); EOS # 0.2 (0.0-0.7); EOS % 1.7 % (0-4.0); GRAN # 6.6 (1.4-6.5); GRAN % 72.2 % (42.2-75.2); HEMATOCRIT 40.4 % (42.0-52.0); HEMOGLOBIN 11.5 g/dl (13.5-18.0); LYMPH # 1.6 (1.2-3.4); LYMPH % 17.6 % (20.0-51.0); MEAN CELL VOLUME 79 fl (80.0-100.0); MEAN CORPUSCULAR HEMOGLOBIN 23 pg (27.0-31.0); MEAN CORPUSCULAR HGB CONC 29 g/dl (33.0-37.0); MEAN PLATELET VOLUME 11.9 fl (7.4-10.4); MONO # 0.7 (0.1-0.6); MONO % 7.5 % (1.7-9.3); PLATELET COUNT 190 K/mm3 (130-400); RED BLOOD COUNT 5.09 M/mm3 (4.20-5.60); REDCELL DISTRIBUTION WIDTH-CV 15.9 % (11.5-14.5)
[2018-07-16 07:36] VITALS: BP 156/65; PULSE 75; TEMP 98.4
[2018-07-16 07:39] LABS: CREATININE, serum 1.07 (0.66-1.25); POTASSIUM 3.5 mmol/L (3.4-5.0)
--- NOTE | 2018-07-16 09:12 | NUR ---
Pt assessment complete. Pt is A/O x3. He just finished with a shower. His breathing is currently even and unlabored on 5L O2 via NC. Pt denies SOB at rest but reports some SOB and dizziness on exertion. Pain currently 10/10 to BLE, PRN pain medication administered. Pt denies N/V. POC discussed with patient who verbalizes understanding. No needs at this time. Call light within reach.
[2018-07-16] MEDS ORDERED: LASIX 40MG TABL40 MG PO (11:02)
[2018-07-16] MEDS ORDERED: DIAMOX 250MG250 MG PO (11:02)
[2018-07-16] MEDS ORDERED: ALDACTONE 25MG25 M1 PO (11:19)
[2018-07-16 11:54] VITALS: BP 123/50; PULSE 72; TEMP 98.4
--- NOTE | 2018-07-16 12:44 | NUR ---
Discharge paperwork and instructions reviewed with patient. All questions answered at this time. IV to Lhand dc'd catheter tip intact. Pt wheeled out of facility at this time.
--- NOTE | 2018-07-16 12:48 | NUR ---
Pt prescriptions called into [facility]. Cancelled at [facility].
== END 2018-07-16 12:49 | disposition home or self-care (01) ==
LOC: COL.ER 18:54 → MEDICAL 21:15
PROVIDERS: Emergency Medicine; Nurse Practitioner; Nurse Practitioner Family; ADMIT Internal Medicine
DX: I11.0 Hypertensive heart disease with heart failure (principal); I50.30 Unspecified diastolic (congestive) heart failure; J96.10 Chronic respiratory failure, unspecified whether with hypoxia or hypercapnia; Z99.81 Dependence on supplemental oxygen; E66.01 Morbid (severe) obesity due to excess calories; E78.5 Hyperlipidemia, unspecified; E11.9 Type 2 diabetes mellitus without complications; Z85.47 Personal history of malignant neoplasm of testis; Z90.79 Acquired absence of other genital organ(s); Z79.4 Long term (current) use of insulin; G47.33 Obstructive sleep apnea (adult) (pediatric)
CPT/HCPCS: 99222; G0378; J1644; J1815; J1940

== ENCOUNTER → 2018-08-11 | Outpatient (REF) ==
[~2018-08-11] MED LIST changes: +ALDACTONE 25MG25 M1 PO; +CINNAMON500 MG PO; +DIAMOX 250MG250 MG PO; +FERROUS SU325 MG/TAB PO; +FISH OIL 1000MG1 CAP PO; +FORT1000TA PO; +GRALISE300 MG PO; +IRON 27 MG PO; +LASIX 40MG40 MG/4 ML IV; +LASIX 80MG TABL80 MG PO; +LOVENOX 6060 MG/0.6 SQ; +LUNESTA3 MG PO; +LYRICA 50MG CAP50 MG PO; +NOVOLOG MIX 70/33 ML SQ; +PROTONIX 40MG T40 MG PO; +VANCO 1 GR1 GM/250 M IV
== END ==
LOC: ZLAB.WCH 13:45
DX: Z01.89 Encounter for other specified special examinations (principal)

== ENCOUNTER 2018-08-12 10:17 | Outpatient (RCR) | payer MEDICARE, BC ==
[~2018-08-12] VITALS: Ht 175.3 cm; Wt 185.0 kg
[2018-08-12 11:20] VITALS: BP 100/64; PULSE 69; TEMP 98.4
--- NOTE | 2018-08-12 12:00 | NUR ---
Pt gloria PICC placement well. Pt discharged with EMS back to [facility]. [facility] notified of pt's departure.
== END 2018-08-12 13:06 | disposition home or self-care (01) ==
LOC: EUO 10:17
DX: Z45.2 Encounter for adjustment and management of vascular access device (principal); L03.90 Cellulitis, unspecified
CPT/HCPCS: C1751

== ENCOUNTER 2018-08-31 16:30 | Emergency (ER) | payer MEDICARE, BC, MEDICAID ==
[~2018-08-31] VITALS: Ht 175.3 cm; Wt 193.2 kg
[2018-08-31 16:53] VITALS: TEMP 97.8
[2018-08-31 17:27] LABS: BASO # 0.1 (0.0-0.2); BASO % 0.6 % (0.0-2.0); EOS # 0.2 (0.0-0.7); EOS % 1.2 % (0-4.0); GRAN # 9.2 (1.4-6.5); GRAN % 76.4 % (42.2-75.2); HEMATOCRIT 38.5 % (42.0-52.0); HEMOGLOBIN 10.8 g/dl (13.5-18.0); LYMPH # 1.7 (1.2-3.4); LYMPH % 13.8 % (20.0-51.0); MEAN CELL VOLUME 79 fl (80.0-100.0); MEAN CORPUSCULAR HEMOGLOBIN 22 pg (27.0-31.0); MEAN CORPUSCULAR HGB CONC 28 g/dl (33.0-37.0); MEAN PLATELET VOLUME 10.4 fl (7.4-10.4); MONO # 0.9 (0.1-0.6); MONO % 7.1 % (1.7-9.3); PLATELET COUNT 188 K/mm3 (130-400); RED BLOOD COUNT 4.87 M/mm3 (4.20-5.60); REDCELL DISTRIBUTION WIDTH-CV 17.9 % (11.5-14.5)
[2018-08-31 17:39] LABS: ARTERIAL BLD GAS TCO2 CT 35.5; ARTERIAL BLOOD GAS BASE EXCESS 6.1 (-2-2); ARTERIAL BLOOD GAS HCO3 33.6 meq/L (22-26); ARTERIAL BLOOD GAS PCO2 63.5 mmHg (35-45); ARTERIAL BLOOD GAS PO2 103.5 mmHg (80-100); ARTERIAL BLOOD GAS pH 7.34 (7.35-7.45)
[2018-08-31 17:40] LABS: ALANINE AMINOTRANSFERASE < 6 U/L (21-72); ALBUMIN 3.8 gm/dL (3.5-5.0); ALKALINE PHOSPHATASE 87 U/L (50-136); ANION GAP 8 mmol/L (7-16); AST,SGOT 18 U/L (15-37); BILIRUBIN,TOTAL 0.4 mg/dL (0.0-1.0); BLOOD UREA NITROGEN 20 mg/dL (9-20); C-REACTIVE PROTEIN 2.4 mg/dL (0.0-0.9); CALCIUM 8.5 mg/dL (8.4-10.2); CARBON DIOXIDE 34 mmol/L (22-30); CHLORIDE 99 mmol/L (98-107); CREATININE, serum 1.24 (0.66-1.25); GLUCOSE 230 mg/dL (74-106); POTASSIUM 3.8 mmol/L (3.4-5.0); SODIUM 141 mmol/L (137-145); TOTAL PROTEIN 7.5 gm/dL (6.4-8.2)
[2018-08-31 17:59] LABS: TROPONIN-I < 0.012 ng/mL (0.000-0.035)
[2018-08-31 18:22] VITALS: BP 156/71; PULSE 84
== END 2018-08-31 18:35 | disposition home or self-care (01) ==
LOC: COL.ER 16:30
PROVIDERS: Emergency Medicine
DX: J96.10 Chronic respiratory failure, unspecified whether with hypoxia or hypercapnia (principal); E66.9 Obesity, unspecified; Z79.84 Long term (current) use of oral hypoglycemic drugs

== ENCOUNTER → 2018-09-01 | Outpatient (CLI) | payer MEDICARE, BC ==
--- NOTE | 2018-09-01 08:48 | NUR ---
Patient became purple/blue in the face during PFT. Patient stated that he was okay. SPO2 checked upon patient leaving the exam. SPO2 was 90%.
== END ==
LOC: COL.PUL 06:54
DX: J96.11 Chronic respiratory failure with hypoxia (principal); J96.12 Chronic respiratory failure with hypercapnia

== ENCOUNTER 2020-10-29 12:08 | Emergency (ER) | payer MEDICARE, MEDICAID ==
[~2020-10-29] VITALS: Ht 175.3 cm; Wt 121.4 kg
[2020-10-29 12:09] VITALS: TEMP 98.2
[2020-10-29 14:16] LABS: BASO # 0.1 (0.0-0.2); BASO % 0.8 % (0.0-2.0); EOS # 0.2 (0.0-0.7); GRAN # 4.7 (1.4-6.5); GRAN % 62.6 % (42.2-75.2); HEMATOCRIT 39.6 % (42.0-52.0); HEMOGLOBIN 12.6 g/dl (13.5-18.0); LYMPH # 1.9 (1.2-3.4); LYMPH % 24.9 % (20.0-51.0); MEAN CELL VOLUME 82 fl (80.0-100.0); MEAN CORPUSCULAR HEMOGLOBIN 26 pg (27.0-31.0); MEAN CORPUSCULAR HGB CONC 32 g/dl (33.0-37.0); MONO # 0.7 (0.1-0.6); MONO % 9.3 % (1.7-9.3); PLATELET COUNT 170 K/mm3 (130-400); RED BLOOD COUNT 4.81 M/mm3 (4.20-5.60); REDCELL DISTRIBUTION WIDTH-CV 16.1 % (11.5-14.5)
[2020-10-29 14:28] LABS: ALANINE AMINOTRANSFERASE 14 U/L (4-49); ALBUMIN 3.8 gm/dL (3.5-5.0); ALKALINE PHOSPHATASE 103 U/L (50-136); ANION GAP 5 mmol/L (7-16); AST,SGOT 25 U/L (15-37); BILIRUBIN,TOTAL 0.3 mg/dL (0.0-1.0); BLOOD UREA NITROGEN 23 mg/dL (9-20); CALCIUM 8.5 mg/dL (8.4-10.2); CARBON DIOXIDE 28 mmol/L (22-30); CHLORIDE 105 mmol/L (98-107); CREATININE, serum 1.18 (0.66-1.25); GLUCOSE 97 mg/dL (74-106); POTASSIUM 4.5 mmol/L (3.4-5.0); SODIUM 139 mmol/L (137-145); TOTAL PROTEIN 7.2 gm/dL (6.4-8.2)
[2020-10-29 14:48] LABS: C-REACTIVE PROTEIN < 0.5 mg/dL (0.0-0.9)
[2020-10-29 15:27] VITALS: BP 107/72; PULSE 91
== END 2020-10-29 15:29 | disposition home or self-care (01) ==
LOC: COL.ER 12:08
PROVIDERS: Family Medicine
DX: R41.82 Altered mental status, unspecified (principal); I10 Essential (primary) hypertension; E78.5 Hyperlipidemia, unspecified; E11.9 Type 2 diabetes mellitus without complications; E66.01 Morbid (severe) obesity due to excess calories; J96.10 Chronic respiratory failure, unspecified whether with hypoxia or hypercapnia; I11.0 Hypertensive heart disease with heart failure; I50.9 Heart failure, unspecified; Z79.4 Long term (current) use of insulin; Z79.899 Other long term (current) drug therapy; Z68.39 Body mass index [BMI] 39.0-39.9, adult
CPT/HCPCS: J7120

== ENCOUNTER → 2021-07-02 | Outpatient (REF) | LOC: COL.CARD 07:42 | DX: R00.2 Palpitations (principal) ==

== ENCOUNTER 2023-11-26 05:26 | Observation (INO) | payer MEDICARE ==
[2023-11-26] VITALS (7 sets, daily range): BP systolic 107–145; BP diastolic 64–79; PULSE 56–75; TEMP 97.7–98.3
[~2023-11-26] VITALS: Ht 175.3 cm; Wt 113.3 kg
[~2023-11-26 05:26] MED LIST changes: -LASIX 40MG40 MG/4 ML IV; +LASIX 40MG40 MG/4 ML PO
[2023-11-26] MEDS ORDERED: DEPAKOTE500 MG PO (06:44)
[2023-11-26] MEDS ORDERED: CATAPRES 0.1MG0.1 MG PO (06:44)
[2023-11-26] MEDS ORDERED: DESYREL 100MG100 MG PO (06:45)
[2023-11-26] MEDS ORDERED: WELLBUTRIN SR100 M1 PO (06:46)
[2023-11-26] MEDS ORDERED: MIRAPEX0.25 MG PO (06:48)
[2023-11-26] MEDS ORDERED: REMERON 15M15 MG/TA1 PO (06:49)
--- NOTE | 2023-11-26 07:27 | NUR ---
patient arrived from [place] via self vehicle transport around 0615. alert and oriented x4 with at bedside. denies chest pain, shortness of breath, and abd pain. NG tube at 55 cm placed on LIS, no remarkable skin findings. ambulates with steady gait. call light within reach. pt has no further needs questions or concern sat this time. care passed to FRANSICO Navarrete.
[2023-11-26] MEDS ORDERED: NEXIUM 40MG40 MG PO (08:20)
[2023-11-26] MEDS ORDERED: PERCOCET 325 MG1 TA2 PO (08:26)
--- NOTE | 2023-11-26 10:00 | NUR ---
scale assembly set up worker met with pt to discuss intake information. He reports to live with his , Stefanie [phone] and daughter. He sees Dr. Santana for PCP needs and obtains medications from [facility] with no difficulties. he verified to have Medicare [employer] insurance. Pt is independent with ADLS and uses no DME. He confirmed the [facility] on file listing his . No further needs. Discharge Plan: home
[2023-11-26] MEDS ORDERED: LR 1,000 ML IV SCH (10:15)
[2023-11-26] MEDS ORDERED: Ondansetron 4 MG/2 ML VIAL IV PRN (10:15)
[2023-11-26] MEDS ORDERED: Phenol 1.4% Spray 180 ML BOTTLE MM PRN (10:45)
[2023-11-26] MEDS ORDERED: Methylnaltrexone 12 MG/0.6 ML VIAL SQ SCH (11:00)
--- NOTE | 2023-11-26 11:21 | NUR ---
PER DR MARK PATIAGUILA TOK TO HAVE NGTUBE REMOVED. PER PATIENT PAIN HAS IMPORVED SINCE YESTERDAY. NO OUTPUT NOTED TO NGTUBE. PATIENT CAN START CLEAR LIQUID DIET. NGTUBE REMOVAL AND START CLEAR LIQUID DIET OKAYED WITH DR TAPIA
[2023-11-26] MEDS ORDERED: PROAIR RES117 MCG/Ac IH (11:22)
--- NOTE | 2023-11-26 11:38 | NUR ---
NGTUBE REMOVED. PATIENT TOELRATED WELL.
[2023-11-26] MEDS ORDERED: traZODone 100 MG TAB PO PRN (13:00)
[2023-11-26] MEDS ORDERED: Albuterol 0.083% Neb Soln 2.5 MG/3 ML UD IH PRN (13:00)
[2023-11-26] MEDS ORDERED: Pregabalin 75 MG CAP PO ONE (17:00)
--- NOTE | 2023-11-26 18:05 | NUR ---
ERYN GIVEN DISCHARGE INSTRUCTIONS AND EDUCATION. PATIENT IV REMOVED. MICHAEL TTAKEN DOWN TO ER ENTRANCE BY PCT WHERE HE LEFT IN STABLE CONDITION WITH HIS FAMILY.
[2023-11-26] MEDS ORDERED: Mirtazapine 15 MG TAB PO SCH (21:00)
[2023-11-26] MEDS ORDERED: Pregabalin 75 MG CAP PO SCH (21:00)
[2023-11-26] MEDS ORDERED: Divalproex 250 MG Delayed Release TAB PO SCH (21:00)
[2023-11-27] MEDS ORDERED: cloNIDine 0.1 MG TAB PO SCH (09:00)
[2023-11-27] MEDS ORDERED: buPROPion SR (12-HR) 100 MG TAB PO SCH (09:00)
[2023-11-27] MEDS ORDERED: Pantoprazole 40 MG in NS 10 ML IV SCH (09:00)
[2023-11-27] MEDS ORDERED: Influenza Virus Vaccine, Trivalent '24-25 0.5 ML SYRINGE IM SCH (09:00)
== END 2023-11-26 18:41 | disposition home or self-care (01) ==
LOC: SURG 05:26 → MEDICAL 06:04 → INPTSU 06:04 → MEDICAL 06:07
PROVIDERS: ADMIT Internal Medicine
DX: K56.699 Other intestinal obstruction unspecified as to partial versus complete obstruction (principal); K21.9 Gastro-esophageal reflux disease without esophagitis; G47.33 Obstructive sleep apnea (adult) (pediatric); G62.9 Polyneuropathy, unspecified; I87.2 Venous insufficiency (chronic) (peripheral); I11.0 Hypertensive heart disease with heart failure; G89.29 Other chronic pain; F32.A Depression, unspecified; Z98.84 Bariatric surgery status; Z79.899 Other long term (current) drug therapy
CPT/HCPCS: G0378; G0379; J2212; J7120